=== PATIENT | male | born 1960 | race Two or more races ===

== ENCOUNTER 2025-03-13 08:12 | Inpatient (IN) | payer SELFPAY ==
[~2025-03-13] VITALS: Ht 167.6 cm; Wt 59.6 kg
--- NOTE | 2025-03-13 08:43 | ED.PDOC ---
GI ASSESSMENT HPI Comments 64 y.o male presents to the ED for a chief complaint of lower abdominal pain that started 2 months ago. Patient reports pain is constant however ranges in intensity, going up to a 10/10 on the pain scale. At this time, pain rate is a 4/10 and has no associated symptoms such as nausea, vomiting, diarrhea, fever, chills. Additionally, he mentions intermittent episodes of dysuria and leg weakness. He reports tobacco and alcohol use. Denies medical history or known allergies. Chief Complaint: Pelvic Pain Time Seen by MD: 08:35 Reviewed Notes: Nurses Notes, Medications, Allergies Allergies: Coded Allergies: NO KNOWN ALLERGIES (Unverified , 03/13/25) Information Source: Patient Mode of Arrival: Ambulatory Timing: Months (2) Duration: Since onset Quality: Aching Vomitus: None Stool: Normal Severity: Moderate Recent: None Recent Hx of: None Pain Location: Suprapubic Modifying Factors: Nothing Associated sign and symptoms: Abdominal Pain Past Medical History PAST MEDICAL HISTORY: Denies Surgical History (Other): right leg Family History Family History: Reviewed,noncontributory to illness Social History Smoker: Cigarettes Alcohol: Occasionally Drugs: Denies Drug Use Constitutional: denies: chills, diaphoresis, fatigue, fever, malaise, sweats, weakness, others EENTM: denies: blurred vision, double vision, ear bleeding, ear discharge, ear drainage, ear pain, ear ringing, eye pain, eye redness, hearing loss, mouth pain, mouth swelling, nasal discharge, nose bleeding, nose congestion, nose pain, photophobia, tearing, throat pain, throat swelling, voice changes, others Respiratory: denies: cough, hemoptysis, orthopnea, SOB at rest, shortness of breath, SOB with excertion, stridor, wheezing, others Cardiovascular: denies: chest pain, dizzy spells, diaphoresis, Dyspnea on exertion, edema, irregular heart beat, left arm pain, lightheadedness, palpitations, PND, syncope, others Gastrointestinal: reports: abdominal pain; denies: abdomen distended, blood streaked bowels, constipated, diarrhea, dysphagia, difficulty swallowing, hematemesis, melena, nausea, poor appetite, poor fluid intake, rectal bleeding, rectal pain, vomiting, others Genitourinary: reports: dysuria; denies: burning, flank pain, frequency, hematuria, incontinence, penile discharge, penile sore, pain, testicle pain, testicle swelling, urgency, others Neurological: denies: dizziness, fainting, headache, left sided numbness, left sided weakness, numbness, paresthesia, pre-existing deficit, right sided numbness, right sided weakness, seizure, speech problems, tingling, tremors, weakness, others Musculoskeletal: denies: back pain, gout, joint pain, joint swelling, muscle pain, muscle stiffness, neck pain, others Integumetry: denies: bruises, change in color, change in hair/nails, dryness, laceration, lesions, lumps, rash, wounds, others Allergic/Immunocompromised: denies: Difficulty Healing, Frequent Infections, Hives, Itching, others Hematologic/Lymphatic: denies: anemia, blood clots, easy bleeding, easy bruising, swollen glands, others Endocrine: denies: excessive hunger, excessive sweating, excessive thirst, excessive urination, flushing, intolerance to cold, intolerance to heat, unexplained weight gain, unexplained weight loss, others Psychiatric: denies: anxiety, bipolar disorder, depression, hopeless, panic disorder, schizophrenia, sleepless, suicidal, others All Other Systems: Reviewed and Negative Physical Exam General Appearance: Moderate Distress HEENT: Normal ENT Inspection, Pharynx Normal, TMs Normal Neck: Full Range of Motion, Non-Tender, Normal, Normal Inspection Respiratory: Chest Non-Tender, Lungs Clear, No Accessory Muscle Use, No Respiratory Distress, Normal Breath Sounds Cardiovascular: No Edema, No JVD, No Murmur, No Gallop, Normal Peripheral Pulses, Regular Rate/Rhythm Breast Exam: Deferred Gastrointestinal: No Organomegaly, No Pulsatile Mass, Normal Bowel Sounds, Soft, Suprapubic, Tenderness Genitalia: Deferred Pelvic: Deferred Rectal: Deferred Extremities: No calf tenderness, Normal capillary refill, Normal inspection, Normal range of motion, Non-tender, No pedal edema Musculoskeletal : Apperance: Normal Neurologic: Alert, 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 Was a procedure done?: No GI differential Dx Differential Diagnosis: Esophagitis, Gastroenteritis, Inflammatory BD X-Ray, Labs, Meds, VS Vital Signs Date Time Temp Pulse Resp B/P (MAP) Pulse Ox O2 Delivery O2 Flow Rate FiO2 03/13/25 09:44 97.5 75 17 156/88 (110) 95 97.5 03/13/25 09:44 75 17 96 Room Air 03/13/25 08:14 97.9 93 18 172/108 99 97.9 Lab Test 03/13/25 08:50 Range/Units White Blood Count 7.1 4.4-10.8 10^3/uL Red Blood Count 4.67 4.5-5.90 10^6/uL Hemoglobin 15.5 13.5-17.5 g/dL Hematocrit 45.7 41.0-53.0 % Mean Corpuscular Volume 97.9 80.0-100.0 fL Mean Corpuscular Hemoglobin 33.2 H 28.0-32.0 pg Mean Corpuscular Hemoglobin Concent 33.9 32.0-36.0 g/dL Red Cell Distribution Width 12.6 11.8-14.3 % Platelet Count 292 140-450 10^3/uL Mean Platelet Volume 7.5 6.9-10.8 fL Neutrophils (%) (Auto) 68.2 37.0-80.0 % Lymphocytes (%) (Auto) 19.6 10.0-50.0 % Monocytes (%) (Auto) 10.5 0.0-12.0 % Eosinophils (%) (Auto) 1.1 0.0-7.0 % Basophils (%) (Auto) 0.6 0.0-2.0 % Neutrophils # (Auto) 4.9 1.6-8.6 10 ^3/uL Lymphocytes # (Auto) 1.4 0.4-5.4 10 ^3/uL Monocytes # (Auto) 0.7 0-1.3 10 ^3/uL Eosinophils # (Auto) 0.1 0-0.8 10 ^3/uL Basophils # (Auto) 0 0-0.2 10 ^3/uL Nucleated Red Blood Cells 0.1 % Sodium Level 136 136-145 mmol/L Potassium Level 3.8 3.5-5.1 mmol/L Chloride Level 100 98-107 mmol/L Carbon Dioxide Level 27 20-31 mmol/L Anion Gap 9 5-15 Blood Urea Nitrogen 7 L 9-23 mg/dL Creatinine 0.80 0.700-1.30 mg/dL Glomerular Filtration Rate Calc 99 >90 mL/min BUN/Creatinine Ratio 8.8 L 10.0-20.0 Serum Glucose 87 74-106 mg/dL Calcium Level 9.1 8.7-10.4 mg/dL Lipase Pending CAT scan of the abdomen and pelvis shows: IMPRESSION: Limited noncontrast study. Diffuse wall thickening of the sigmoid colon with apparent 3.3 cm extraluminal fluid collection adjacent to the sigmoid colon which could represent abscess from possible micro-perforation secondary to infection/inflammation. No int raperitoneal free air is visualized. Recommend contrast-enhanced study for further evaluation. Recommend colonoscopy as outpatient to exclude underlying mass. Diffuse bladder wall thickening Inferior Correlate for cystitis. Hep-Lock has been established. The patient is being given normal saline as a bolus. There is a concern that there is a microperforation in the sigmoid colon consistent with maybe diverticulitis with perforation. We are consulting the surgeon right now The patient will be admitted to the hospitalist. We spoke with the surgeon. The patient had an NG-tube placed. The patient will be NPO. The patient will be re-evaluated by the surgeon. The patient was started on Flagyl IV piggyback Images Reviewed?: Images reviewed and evaluated by me Time of 1ST Reevaluation: 08:43 Reevaluation 1ST: Unchanged Patient Education/Counseling: Diagnosis, Treatment, Prognosis Family Education/Counseling: No Family Present SEPSIS Sepsis Screen Date sepsis recognized/suspect: Mar 13, 2025 Time Sepsis recognized/suspect: 0816 Recent Procedure: No On Antibiotic Therapy: No Respiratory Rate >20: No Heart Rate >90: No Temp<36 C (96.8 F) or >38.3 C: No SBP <90 or MAP <65 mmHG: No New Acute Mental Status Change: No Is the patient on CPAP, BIPAP,: No Physician Orders Lipase (03/13/25 08:42) Urinalysis (03/13/25 08:42) Ct Ab Pel Wo Con-No Oral Or Iv (03/13/25 08:42) Heplock Iv (03/13/25 08:42) Basic Metabolic Panel (03/13/25 08:42) Metronidazole 500mg/100ml (Flagyl 500mg/ (03/13/25 09:30) Piperacillin-Tazob 3.375gm (Zosyn 3.375g (03/13/25 09:30) Npo (Nothing By Mouth) Diet (03/13/25 Lunch) Ngt/Ogt (03/13/25 ) Vital Signs Date Time Temp Pulse Resp B/P (MAP) Pulse Ox O2 Delivery O2 Flow Rate FiO2 03/13/25 09:44 97.5 75 17 156/88 (110) 95 97.5 03/13/25 09:44 75 17 96 Room Air 03/13/25 08:14 97.9 93 18 172/108 99 97.9 Laboratory Tests Test 03/13/25 08:50 White Blood Count 7.1 10^3/uL (4.4-10.8) Departure 1 Departure Time of Disposition: 09:58 Impression: Primary Impression: Intractable abdominal pain Additional Impression: Diverticulitis Disposition: ADMITTED INPATIENT Admit to: Med Surg Condition: Fair Critical Care Note Critical Care Time?: No Stability Stability form required: No I personally scribed for MEME MACKAY MD ([email or web address]) on 03/13/25 at 08:43. Electronically submitted by Pearl Bill ([facility]). MEME MACKAY MD Mar 13, 2025 08:43
[2025-03-13 09:19] LABS: Hematocrit 45.7 % (41.0-53.0); Hemoglobin 15.5 g/dL (13.5-17.5); Mean Corpuscular Hemoglobin 33.2 pg (28.0-32.0); Mean Corpuscular Volume 97.9 fL (80.0-100.0); Nucleated Red Blood Cells % 0.1 %
--- NOTE | 2025-03-13 09:23 | DVH ---
EXAM: CT CT AB PEL WO CON-NO ORAL OR IV HISTORY: pain Comparison Study: None Exam Date: 03/13/2025 08:52 AM Radiation Dose Information: CT Dose: CTDI volume is 5.07 mGy. Dose-length product is 244.52 mGy*cm Technique: Multidetector CT of the abdomen and pelvis was performed. Imaging was performed without IV contrast. Axial, coronal and sagittal multiplanar reformats were obtained from the axial data set by the technologist. Findings: Lack of intravenous contrast compromises evaluation of perfusion and for isodense lesions. Lower chest: Clear. Liver: Unremarkable Biliary system: Unremarkable Spleen: Unremarkable Pancreas: Unremarkable. Adrenals: Unremarkable. Kidneys and ureters: No hydronephrosis Bowel: No obstruction. Diffuse wall thickening involving the sigmoid colon. There is apparent extraluminal fluid collection adjacent to the sigmoid colon measuring approximately 3.3 cm. Bladder: Diffuse bladder wall thickening. Reproductive organs: No abnormal mass. Lymph nodes: Unremarkable. Peritoneum: Unremarkable Vessels: Patency not evaluated on this noncontrast study. Bones and soft tissue: No aggressive osseous lesion IMPRESSION: Limited noncontrast study. Diffuse wall thickening of the sigmoid colon with apparent 3.3 cm extraluminal fluid collection adjacent to the sigmoid colon which could represent abscess from possible micro-perforation secondary to infection/inflammation. No intraperitoneal free air is visualized. Recommend contrast-enhanced study for further evaluation. Recommend colonoscopy as outpatient to exclude underlying mass. Diffuse bladder wall thickening Inferior Correlate for cystitis.
[2025-03-13 09:33] LABS: Chloride 100 mmol/L (98-107); Potassium 3.8 mmol/L (3.5-5.1); Sodium 136 mmol/L (136-145)
[2025-03-13 09:34] LABS: Anion Gap 9 (5-15); Calcium 9.1 mg/dL (8.7-10.4); Carbon Dioxide 27 mmol/L (20-31)
[2025-03-13 09:39] LABS: BUN/Creatinine Ratio 8.8 (10.0-20.0); Glucose 87 mg/dL (74-106)
[2025-03-13 09:52] LABS: Blood Urea Nitrogen 7 mg/dL (9-23)
[2025-03-13] MEDS: PIPERACILLIN-TAZOB 3.375GM 100 ML IV ONE (10:55)
[2025-03-13 10:56] VITALS: PULSE 68; RESP 17; O2SAT 99
[2025-03-13 11:02] LABS: Urine Amorphous Crystal FEW /hpf (None Seen); Urine Budding Yeast FEW /hpf (None Seen); Urine Protein, UAD Negative (Negative)
[2025-03-13 11:37] LABS: Lipase 38 U/L (12-53)
[2025-03-13] MEDS: LIDOCAINE 2% TOPICAL JELLY 5 ML URJT TOP ONE (12:45)
[2025-03-13] MEDS: ONDANSETRON HCL 4 MG/2 ML VIAL IV ONE (12:45)
[2025-03-13] MEDS ORDERED: NITROGLYCERIN 0.4 MG SL TAB SL PRN (13:15)
[2025-03-13] MEDS ORDERED: MORPHINE SULFATE INJ 2 MG/ml SYRG IV PRN (13:15)
--- NOTE | 2025-03-13 14:04 | DVHINCON2 ---
Date of service: Mar 13, 2025 Reason for Consultation POSSIBLE SIGMOID MASS History of Present Illness HPI 64 year old male presented to the ER with complaint of lower abdominal pain that started two months ago. He states intermitent abdominal pain going up to a 10/10 on pain scale, Currently he denies any abdominal pain . denies nausea or vomiting. Past Medical History Cardiac: No pertinent Hx Pulmonary: No pertinent Hx Central Nervous System: No pertinent Hx GI: No pertinent Hx Hemotology/Oncology: No pertinent Hx Hepatobiliary: No pertinent Hx Psychiatric: No pertinent Hx Musculoskeletal: No pertinent Hx Rheumotologic: No pertinent Hx Infectious Disease: No peritnent Hx ENT: No pertinent Hx Renal/: No pertinent Hx Endocrine: No pertinent Hx Dermatology: No pertinent Hx Past Surgical History: No pertinent Hx Smoker: Positive Alocohol: Moderate Drugs: Other (uses did not specify which one) Review of Systems Constitutional: No symptom reported Ears, Nose, & Throat: No symptom reported Eyes: No symptom reported Pulmonary/Respiratory: No symptom reported Cardiovascular: No symptom reported Gastrointestinal: No symptom reported Genitourinary: No symptom reported Musculoskeletal: No symptom reported Skin: No symptom reported Psychiatric: No symptom reported Endocrine: No symptom reported Hemotologic/Lymphatic: No symptom reported H&P Exam Vital Signs Vital Signs Date Time Temp Pulse Resp B/P (MAP) Pulse Ox O2 Delivery O2 Flow Rate FiO2 03/13/25 11:02 98 Room Air* 0 21 03/13/25 10:56 68 17 03/13/25 10:00 161/81 (107) 03/13/25 09:44 97.5 97.5 General Appeara: Well developed Head Exam: Normal inspection Neck Exam: Normal inspection Abdominal Exam: Soft, No tenderness Tendon/ Neuro: 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 hearing, Normal speech, PERRL Neuro/Mental St: Alert, Oriented Appearance: Appropriate appearance Eye contact/ Speech: Cooperative, Good eye contact, Normal speech Labs/Xrays Labs Test 03/13/25 08:55 03/13/25 08:50 Range/Units Urine Color Light-orange Yellow Urine Clarity Turbid H Clear Urine pH 7.0 5.0-9.0 Urine Specific [place] 1.016 1.001-1.035 Urine Protein Negative Negative Urine Ketones 1+ H Negative Urine Blood Negative Negative /uL Urine Nitrite Negative Negative Urine Bilirubin Negative Negative Urine Urobilinogen 2 H Negative mg/dL Urine Leukocyte Esterase Negative Negative /uL Urine RBC 2 0 - 3 /hpf Urine Microscopic WBC < 1 0-3 /HPF Urine Squamous Epithelial Cells Few <5 /hpf Urine Amorphous Crystals Few None Seen /hpf Urine Bacteria None seen None Seen /hpf Urine Mucus Few None Seen Urine Yeast (Budding) Few None Seen /hpf Urine Glucose Normal Normal mg/dL White Blood Count 7.1 4.4-10.8 10^3/uL Red Blood Count 4.67 4.5-5.90 10^6/uL Hemoglobin 15.5 13.5-17.5 g/dL Hematocrit 45.7 41.0-53.0 % Mean Corpuscular Volume 97.9 80.0-100.0 fL Mean Corpuscular Hemoglobin 33.2 H 28.0-32.0 pg Mean Corpuscular Hemoglobin Concent 33.9 32.0-36.0 g/dL Red Cell Distribution Width 12.6 11.8-14.3 % Platelet Count 292 140-450 10^3/uL Mean Platelet Volume 7.5 6.9-10.8 fL Neutrophils (%) (Auto) 68.2 37.0-80.0 % Lymphocytes (%) (Auto) 19.6 10.0-50.0 % Monocytes (%) (Auto) 10.5 0.0-12.0 % Eosinophils (%) (Auto) 1.1 0.0-7.0 % Basophils (%) (Auto) 0.6 0.0-2.0 % Neutrophils # (Auto) 4.9 1.6-8.6 10 ^3/uL Lymphocytes # (Auto) 1.4 0.4-5.4 10 ^3/uL Monocytes # (Auto) 0.7 0-1.3 10 ^3/uL Eosinophils # (Auto) 0.1 0-0.8 10 ^3/uL Basophils # (Auto) 0 0-0.2 10 ^3/uL Nucleated Red Blood Cells 0.1 % Sodium Level 136 136-145 mmol/L Potassium Level 3.8 3.5-5.1 mmol/L Chloride Level 100 98-107 mmol/L Carbon Dioxide Level 27 20-31 mmol/L Anion Gap 9 5-15 Blood Urea Nitrogen 7 L 9-23 mg/dL Creatinine 0.80 0.700-1.30 mg/dL Glomerular Filtration Rate Calc 99 >90 mL/min BUN/Creatinine Ratio 8.8 L 10.0-20.0 Serum Glucose 87 74-106 mg/dL Calcium Level 9.1 8.7-10.4 mg/dL Lipase 38 12-53 U/L Assessment/Plan Problem List: (1) Intractable abdominal pain Plan LABS REVIEWED WBC NORMAL NOTES REVIEWED PATIENT DENIES ABDOMINAL PAIN NON TENDER ABDOMEN TO PALPATION DENIES NAUSEA OR VOMITING NGT TO [facility] NPO NO SURGERY AT THIS TIME WILL REEVALUATE TO [facility] MARTINEZ Plan discussed with: Patient, Other (DR. HUSSEIN ) Visit Coding Surgery Date of Service if different f: Mar 13, 2025 Billing Provider: JENNIFER HUSSEIN MD Surgery Visit Codes: 37773 - INP CONSULT <80 MIN JOSE HERRERA FOREIGN AGENT Mar 13, 2025 14:04
[2025-03-13] MEDS: PIPERACILLIN-TAZOB 3.375GM 100 ML IV SCH (14:15)
--- NOTE | 2025-03-13 14:47 | DVH ---
CHEST RADIOGRAPH Indication: NGT placement Technique: Single frontal view of the chest was obtained Comparison: None FINDINGS: Lines and Tubes: Nasogastric tube tip in the stomach Lungs: No focal consolidation. Pleura: No effusion. No pneumothorax. Cardiomediastinal contours: Unremarkable Bones: No acute osseous abnormality. IMPRESSION: No acute cardiopulmonary disease. Nasogastric tube tip in the stomach.
[2025-03-13] MEDS: OMNIPAQUE 12mg/ml 500ml ORAL SOLUTION PO ONE (15:01)
[2025-03-13] MEDS: IOHEXOL 300 MG/ML 100ML BOTTLE IJ ONE (17:26)
--- NOTE | 2025-03-13 18:11 | DVHHPRES ---
History of Present Illness Resident Creating Document: CASANDRA HSIEH RESIDENT History of Present Illness JOSÉ HAMPTON, a 64-year-old male presents to the ED with a 2-month history of constant suprapubic abdominal pain, described as aching and varying in intensity, reaching up to 10/10 at its worst and currently rated 4/10 with recent history of watery nonbloody diarrhea. Patient presented with acute onset of 10/10 generalized abdominal pain, nausea, and recent constipation associated with chills and fever but patient did not check temperature. Pain has no clear modifying factors and is not associated with nausea, vomiting, diarrhea, fever, or chills. Patient reports intermittent episodes of dysuria and occasional leg weakness. Denies past medical history or known allergies; surgical history notable for prior right leg procedure. Social history includes active 40+ pack year cigarette smoking and occasional alcohol use; denies illicit drug use. Family history reviewed and noncontributory. The patient does not have a PCP, did not follow up with physicians and never had a colonoscopy. Denies any family history of gastrointestinal cancer or autoimmune disease. PMHx: Denies PSHx:right leg ORIF 20 years back , bilateral cataract surgery Family history: Reviewed, noncontributory to illness Social history: 40+ pack-year of smoking history, currently smokes 1 pack of cigarettes each day. denies lifetime use of recreational drugs, daily 2-3 beers, last alcohol consumption about 48 hours ago. Review of Systems Constitutional: Yes: Fever, Chills, Malaise; No: Sweats, Weakness, Other Eyes: No: Pain, Vision change, Conjunctivae inflammation, Eyelid inflammation, Other, Redness ENT: No: Ear pain, Ear discharge, Nose pain, Nose discharge, Nose congestion, Mouth pain, Mouth swelling, Throat pain, Throat swelling, Other Cardiovascular: No: Chest Pain, Palpitations, Orthopnea, Paroxysmal Noc. Dyspnea, Edema, Lt Headedness, Other Gastrointestinal: Nausea, Vomiting, Abdominal Pain, Diarrhea; No: Constipation, Melena, Hematochezia, Other Genitourinary: No Dysuria, No Frequency, No Incontinence, No Hematuria, No Retention, No Other Musculoskeletal: No: other, neck pain, shoulder pain, arm pain, back pain, hand pain, leg pain, foot pain Skin: No: Rash, Lesions, Jaundice, Bruising, Other Neurological: No: Weakness, Numbness, Incoordination, Change in speech, Confusion, Seizures, Other Allergies: Coded Allergies: NO KNOWN ALLERGIES (Unverified , 03/13/25) Medications Current Medications Medications Dose Ordered Sig/Arabella Route Start Time Stop Time Status Last Admin Dose Admin Nitroglycerin 0.4 mg Q5MINP PRN SL 03/13/25 13:15 Morphine Sulfate 2 mg Q30M PRN IV 03/13/25 13:15 Piperacillin Sod/ Tazobactam Sod 100 ml @ 25 mls/hr Q8HR IV 03/13/25 14:00 03/13/25 14:15 25 MLS/HR Nicotine 1 patch DAILY TD 03/14/25 10:00 UNV Lactated Ringer's 1,000 ml @ 100 mls/hr Q10H IV 03/13/25 18:15 UNV Exam Vital Signs Vital Signs Date Time Temp Pulse Resp B/P (MAP) Pulse Ox O2 Delivery O2 Flow Rate FiO2 03/13/25 16:00 73 19 153/81 (105) 97 03/13/25 12:00 97.9 97.9 03/13/25 11:02 Room Air* 0 21 General Appearance: Alert, Oriented X3, Cooperative, mild distress HEENT: Atraumatic, PERRLA, EOMI, Other (dry on NG tube) Respiratory: Clear to auscultation, Normal air movement, Other (room air) Cardiovascular: Regular rate, Normal S1, Normal S2, No murmurs Abdominal: Other (tenderness in the left lower quadrant and right lower quadrant. no guarding, no cva angle tenderness. no surgical scar. ) Extremities: No clubbing, No cyanosis, No edema, Normal pulses, No te nderness/swelling, Other (right lower leg old healed surgical scar. ) Skin: No rashes, No breakdown, No significant lesion Neuro: Normal gait, Normal speech, Strength at 5/5 X4 ext, Normal tone, Sensation intact, Cranial nerves 3-12 NL, Reflexes 2+ Psych/Mental Status: Mental status NL, Mood NL Labs/Xrays Labs Test 03/13/25 15:37 03/13/25 08:55 03/13/25 08:50 Range/Units Urine Color Light-orange Yellow Urine Clarity Turbid H Clear Urine pH 7.0 5.0-9.0 Urine Specific [place] 1.016 1.001-1.035 Urine Protein Negative Negative Urine Ketones 1+ H Negative Urine Blood Negative Negative /uL Urine Nitrite Negative Negative Urine Bilirubin Negative Negative Urine Urobilinogen 2 H Negative mg/dL Urine Leukocyte Esterase Negative Negative /uL Urine RBC 2 0 - 3 /hpf Urine Microscopic WBC < 1 0-3 /HPF Urine Squamous Epithelial Cells Few <5 /hpf Urine Amorphous Crystals Few None Seen /hpf Urine Bacteria None seen None Seen /hpf Urine Mucus Few None Seen Urine Yeast (Budding) Few None Seen /hpf Urine Glucose Normal Normal mg/dL White Blood Count 7.1 4.4-10.8 10^3/uL Red Blood Count 4.67 4.5-5.90 10^6/uL Hemoglobin 15.5 13.5-17.5 g/dL Hematocrit 45.7 41.0-53.0 % Mean Corpuscular Volume 97.9 80.0-100.0 fL Mean Corpuscular Hemoglobin 33.2 H 28.0-32.0 pg Mean Corpuscular Hemoglobin Concent 33.9 32.0-36.0 g/dL Red Cell Distribution Width 12.6 11.8-14.3 % Platelet Count 292 140-450 10^3/uL Mean Platelet Volume 7.5 6.9-10.8 fL Neutrophils (%) (Auto) 68.2 37.0-80.0 % Lymphocytes (%) (Auto) 19.6 10.0-50.0 % Monocytes (%) (Auto) 10.5 0.0-12.0 % Eosinophils (%) (Auto) 1.1 0.0-7.0 % Basophils (%) (Auto) 0.6 0.0-2.0 % Neutrophils # (Auto) 4.9 1.6-8.6 10 ^3/uL Lymphocytes # (Auto) 1.4 0.4-5.4 10 ^3/uL Monocytes # (Auto) 0.7 0-1.3 10 ^3/uL Eosinophils # (Auto) 0.1 0-0.8 10 ^3/uL Basophils # (Auto) 0 0-0.2 10 ^3/uL Nucleated Red Blood Cells 0.1 % Sodium Level 136 136-145 mmol/L Potassium Level 3.8 3.5-5.1 mmol/L Chloride Level 100 98-107 mmol/L Carbon Dioxide Level 27 20-31 mmol/L Anion Gap 9 5-15 Blood Urea Nitrogen 7 L 9-23 mg/dL Creatinine 0.80 0.700-1.30 mg/dL Glomerular Filtration Rate Calc 99 >90 mL/min BUN/Creatinine Ratio 8.8 L 10.0-20.0 Serum Glucose 87 74-106 mg/dL Calcium Level 9.1 8.7-10.4 mg/dL Lipase 38 12-53 U/L Carcinoembryonic Antigen 3.93 <=5.0 ng/mL SEPSIS Sepsis Screen Date sepsis recognized/suspect: Mar 13, 2025 Time Sepsis recognized/suspect: 1100 Recent Procedure: No On Antibiotic Therapy: No Respiratory Rate >20: Yes Heart Rate >90: Yes Temp<36 C (96.8 F) or >38.3 C: No SBP <90 or MAP <65 mmHG: No New Acute Mental Status Change: No Is the patient on CPAP, BIPAP,: No Physician Orders Admit (03/13/25 13:13) Nitroglycerin Sublingual (Ntrostat Subli (03/13/25 13:15) Morphine Sulfate Injection (03/13/25 13:15) Oxygen By Nasal Cannula (03/13/25 13:13) Stat Ekg For Chest Pain (03/13/25 13:13) Notify Md Of Changes From Base (03/13/25 13:13) Operative Supervisor For 24 Hours (03/13/25 13:13) Emergency Dysrhythmia Protocol (03/13/25 13:13) Rhythm Strips Once Every Shift (03/13/25 13:13) * Surgical Consult (03/13/25 ) Chest Xray 1 View (03/13/25 13:32) Piperacillin-Tazob 3.375gm (Zosyn 3.375g (03/13/25 14:00) Blood Culture (03/13/25 13:38) Npo (Nothing By Mouth) Diet (03/13/25 Dinner) Ng To Lcs (03/13/25 13:53) Suction To 20 Cm (03/13/25 13:52) Communication Order (03/13/25 13:52) Ct Abd Pelvis W Con-Oral & Iv (03/13/25 14:04) Hepatic Panel (03/13/25 17:59) Lactic Acid W/ Reflex Order (03/13/25 17:59) Prothrombin Time W/ Inr (03/13/25 17:59) Consult [place] Counselor (03/13/25 ) Complete Blood Count (03/14/25 04:00) Comprehensive Metabolic Panel (03/14/25 04:00) Drug Screen (03/13/25 18:02) Clostridium Difficile Toxin (03/13/25 18:02) Ova & Parasite Exam (03/13/25 18:02) Stool Bacterial Culture (03/13/25 18:02) Stool Occult Blood (03/13/25 18:02) Gram Stain (03/13/25 18:02) Stool Wbc (03/13/25 18:02) Nicotine 14mg/24hr (Nicoderm 14mg/24hr) (03/13/25 18:15) Nicotine 14mg/24hr (Nicoderm 14mg/24hr) (03/14/25 10:00) Lactated Ringer's (03/13/25 18:15) Vital Signs Date Time Temp Pulse Resp B/P (MAP) Pulse Ox O2 Delivery O2 Flow Rate FiO2 03/13/25 16:00 73 19 153/81 (105) 97 03/13/25 14:00 73 17 165/84 (111) 95 03/13/25 12:00 97.9 77 17 160/91 (114) 95 97.9 03/13/25 11:02 98 Room Air* 0 21 03/13/25 10:56 68 17 99 Room Air* 0 21 Laboratory Tests Test 03/13/25 08:50 03/13/25 15:37 White Blood Count 7.1 10^3/uL (4.4-10.8) Lactic Acid Level Pending Medications Medications Dose Ordered Sig/Arabella Route Start Time Stop Time Status Last Admin Dose Admin Iohexol 1,000 ml STK-MED ONCE PO 03/13/25 14:39 03/13/25 14:38 DC 03/13/25 15:01 1,000 ML Lidocaine HCl 5 ml ONCE ONCE TOP 03/13/25 11:30 03/13/25 11:31 DC 03/13/25 12:45 5 ML Metronidazole 100 ml @ 100 mls/hr ONCE ONCE IV 03/13/25 09:30 03/13/25 10:29 DC 03/13/25 10:55 100 MLS/HR Ondansetron HCl 4 mg ONCE ONCE IV 03/13/25 11:30 03/13/25 11:31 DC 03/13/25 12:45 4 MG Piperacillin Sod/ Tazobactam Sod 100 ml @ 25 mls/hr Q8HR IV 03/13/25 14:00 03/13/25 14:15 25 MLS/HR Piperacillin Sod/ Tazobactam Sod 100 ml @ 100 mls/hr ONCE ONCE IV 03/13/25 09:30 03/13/25 10:29 DC 03/13/25 10:55 100 MLS/HR Assessment/Plan Assessment/Plan #Undiscovered uncontrolled essential hypertension: Pain control, target blood pressure 140/ 90 or below if remains elevated, consider starting the patient on amlodipine p.o. when able to tolerate Diet orally. For now as needed IV hydralazine #acute abdominal pain likely due to diverticulitis: No previous colonoscopy, needs interval colonoscopy, outpatient follow up with GI for colonoscopy given high-risk of colon cancer. CEA, [place] 19 9 to follow. Lipase to check. Pain control IV hydration to continue NPO for now. #sigmoid colon abscess, 3.3 cm: IV Zosyn to continue, IV fluid, NG tube, surgical consult. #Colonic diverticulosis: Avoid constipation. #Prostatomegaly: Prostate large 2.9, 4.7, 3.3 with calcifications: Check for PSA, starting tamsulosin hospital look for urinary retention. #Past surgical history of right leg ORIF and bilateral cataract surgery #Active nicotine abuse, cigarette smoking 40+ pack-year history: Elevated minute bedside smoking cessation counseling done, the patient is on nicotine patch in-hospital. #moderate alcohol abuse: Patient reports consuming 2-3 beer per day, no active signs of withdrawal, but patient becomes agitated consider putting the patient on CIWA protocol. PUD prophylaxis: protonix 40mg Daily to continue DVT prophylaxis: SCD/brisk movement. Barriers to discharge: Medical diagnosis and management in progress. Patient lives with self in [place]. Independent for ADL. PT and SW consult as needed. PCP: never followed a PCP Specialist Relevant To Admission: general surgery, Dr. Pierce consulted for possible sigmoid abscess drainage/ further surgical management. As needed GI consult. morning caregiver consult for help with the insurance coverage. Needs discharge Clinic follow up, insurance coverage and close follow up with PCP and GI. Case discussed with Dr. Weber. Code Status: Full Code. Discussion needed total 29 minutes bedside. Patient is admitted in med surg. Plan discussed with: Patient My Orders Orders - CASANDRA HSIEH RESIDENT Procedure Category Date Status Time Admit ADMIT 03/13/25 Transmitted 13:13 Nitroglycerin PHA 03/13/25 In Process Sublingual (Ntrostat 13:15 Morphine Sulfate PHA 03/13/25 In Process Injection 13:15 Oxygen By Nasal RT 03/13/25 Transmitted Cannula 13:13 Stat Ekg For Chest KENNA 03/13/25 In Process Pain 13:13 Notify Md Of Changes KENNA 03/13/25 In Process From Base 13:13 Operative Supervisor For KENNA 03/13/25 In Process 24 Hours 13:13 Emergency Dysrhythmia KENNA 03/13/25 In Process Protocol 13:13 Rhythm Strips Once KENNA 03/13/25 In Process Every Shift 13:13 * Surgical Consult CONS 03/13/25 Transmitted Piperacillin-Tazob PHA 03/13/25 In Process 3.375gm (Zosyn 3.375g 14:00 Blood Culture ANUM 03/13/25 In Process 13:38 Npo (Nothing By DIET 03/13/25 Transmitted Mouth) Diet Dinner Hepatic Panel LAB 03/13/25 In Process 17:59 Lactic Acid W/ Reflex LAB 03/13/25 In Process Order 17:59 Prothrombin Time W/ LAB 03/13/25 Logged INR 17:59 Consult Care CONS 03/13/25 Transmitted Coordinator Complete Blood Count LAB 03/14/25 Verified 04:00 Comprehensive LAB 03/14/25 Verified Metabolic Panel 04:00 Drug Screen LAB 03/13/25 Logged 18:02 Clostridium Difficile ANUM 03/13/25 Logged Toxin 18:02 Ova & Parasite Exam ANUM 03/13/25 Logged 18:02 Stool Bacterial ANUM 03/13/25 Logged Culture 18:02 Stool Occult Blood LAB 03/13/25 Logged 18:02 Gram Stain ANUM 03/13/25 Logged 18:02 Stool Wbc LAB 03/13/25 Logged 18:02 Nicotine 14mg/24hr PHA 03/13/25 Logged (Nicoderm 14mg/24hr) 18:15 Nicotine 14mg/24hr PHA 03/14/25 Logged (Nicoderm 14mg/24hr) 10:00 Lactated Ringer's PHA 03/13/25 Logged 18:15 Date of Service: Mar 13, 2025 Billing Provider: JEFRY WEBER MD Common Visit Codes: [id number] INP/OBS CARE (HIGH) Secondary Visit Codes: [id number] CARE PLAN 30 MINUTES CASANDRA HSIEH RESIDENT Mar 13, 2025 18:11
--- NOTE | 2025-03-13 18:11 | DVH ---
Exam: CT CT ABD PELVIS W CON-ORAL IV History: R/O PERF,SIGMOID DIVERTICULITIS. Comparison Study: None TECHNIQUE: Multidetector CT of the abdomen pelvis with IV and oral contrast. Axial, coronal and sagittal multiplanar reformats were obtained from the axial data set by the technologist. Radiation Dose Information: CT Dose: CTDI volume is 5.07 mGy. Dose-length product is 244.52 mGy*cm FINDINGS: Bibasilar atelectasis/scarring. Partially visualized heart is unremarkable. Mild hepatic steatosis. Otherwise, liver, spleen, gallbladder, pancreas and adrenal glands unremarkable. Kidneys and ureters are unremarkable. Mild distention of the Urinary bladder borderline urinary bladder wall thickening. Prostate measures 2.9 x 4.7 x 3.3 cm with calcifications. Enteric tube is noted terminating within the stomach. Stomach is unremarkable. Small bowel loops unremarkable. Contrast is noted within the stomach and small bowel loops with minimal contrast within the cecum. Appendix is unremarkable. Colonic diverticulosis. Pinning of the cecum and ascending colon which may be from inadequate distention. Wall thickening of the sigmoid with redemonstration of 2.8 x 3.6 cm fluid collection with air and enhancing wall adjacent to The sigmoid. No evidence of intraperitoneal free air. Minimal mesenteric edema. No evidence of aortic aneurysm or dissection. Moderate to heavy atherosclerotic calcification of the aorta and bilateral iliacs. No significant lymphadenopathy. The soft tissues are unremarkable. No evidence of acute osseous abnormalities. IMPRESSION: Colonic diverticulosis with sigmoiditis and parasigmoid 2.8 x 3.6 cm suggested abscess. No associated free air. Minimal wall thickening of the mildly distended Urinary bladder. Correlation with urinalysis is recommended to exclude cystitis. Oral contrast is noted within the stomach, small bowel loops and cecum.
[2025-03-13] MEDS: NICOTINE 14 MG/24HR TOPICAL PATCH TD ONE (18:15)
[2025-03-13 18:25] LABS: Alanine Aminotransferase 20.0 U/L (7-40); Albumin 3.9 g/dL (3.2-4.8); Alkaline Phosphatase 88.0 U/L (46-116); Bilirubin, Direct 0.2 mg/dL (<0.3); Bilirubin, Total 0.4 mg/dL (0.2-1.0); Total Protein 7.0 g/dL (5.7-8.2)
[2025-03-13 18:37] VITALS: BP 153/81; PULSE 73; RESP 19; TEMP 97.9; O2SAT 97
[2025-03-13 19:11] LABS: INR 1.04 (0.9-1.15); Prothrombin Time 11.0 sec (9.3-11.8)
[2025-03-13] MEDS ORDERED: hydrALAZINE HCL 20 MG/ML VL IV PRN (19:45)
[2025-03-13 20:00] VITALS: PULSE 63; PULSE 72; RESP 20; O2SAT 96
[2025-03-13 21:00] VITALS: BP 138/82; PULSE 70; RESP 20; TEMP 98.2; O2SAT 96
[2025-03-14] VITALS (8 sets, daily range): BP systolic 109–148; BP diastolic 66–88; PULSE 59–82; RESP 18–20; TEMP 98.1–98.8; O2SAT 95–98
[2025-03-14] MEDS: LACTATED RINGER'S 1,000 ML IV SCH (01:57)
[2025-03-14 06:17] LABS: Hematocrit 40.8 % (41.0-53.0); Hemoglobin 14.0 g/dL (13.5-17.5); Mean Corpuscular Hemoglobin 33.4 pg (28.0-32.0); Mean Corpuscular Volume 97.2 fL (80.0-100.0); Nucleated Red Blood Cells % 0.1 %
[2025-03-14 06:32] LABS: Alanine Aminotransferase 13 U/L (7-40); Albumin 3.7 g/dL (3.2-4.8); Alkaline Phosphatase 75 U/L (46-116); Anion Gap 12 (5-15); BUN/Creatinine Ratio 9.6 (10.0-20.0); Carbon Dioxide 24 mmol/L (20-31); Chloride 100 mmol/L (98-107); Potassium 4.0 mmol/L (3.5-5.1); Total Protein 6.8 g/dL (5.7-8.2)
[2025-03-14 06:33] LABS: Bilirubin, Total 0.5 mg/dL (0.2-1.0)
[2025-03-14 06:37] LABS: Blood Urea Nitrogen 7 mg/dL (9-23); Calcium 8.6 mg/dL (8.7-10.4); Glucose 64 mg/dL (74-106); Sodium 136 mmol/L (136-145)
[2025-03-14] MEDS: NICOTINE 14 MG/24HR TOPICAL PATCH TD SCH (09:36)
--- NOTE | 2025-03-14 11:27 | DVHPN2 ---
Progress Note Date Seen: Mar 14, 2025 Medical Necessity Reason Pt with a Central, PICC or Fol: No Objective vital signs Vital Sign Date Time Temp Pulse Resp B/P (MAP) Pulse Ox O2 Delivery O2 Flow Rate FiO2 03/14/25 09:00 98.6 66 20 109/70 (83) 96 98.6 03/14/25 08:00 Room Air* 0 21 Total Intake and Output 03/13/25 03/13/25 03/14/25 15:00 23:00 07:00 Intake Total 200 ml 100 ml 0 ml Output Total 300 ml 400 ml Balance 200 ml -200 ml -400 ml medications Current Medications Medications Dose Ordered Sig/Arabella Route Start Time Stop Time Status Last Admin Dose Admin Nitroglycerin 0.4 mg Q5MINP PRN SL 03/13/25 13:15 Piperacillin Sod/ Tazobactam Sod 100 ml @ 25 mls/hr Q8HR IV 03/13/25 14:00 03/14/25 06:19 25 MLS/HR Nicotine 1 patch DAILY TD 03/14/25 10:00 03/14/25 09:36 1 PATCH Lactated Ringer's 1,000 ml @ 100 mls/hr Q10H IV 03/13/25 18:15 03/14/25 01:57 100 MLS/HR Hydralazine HCl 10 mg Q6HP PRN IV 03/13/25 19:45 Tamsulosin HCl 0.4 mg QPM PO 03/14/25 18:00 laboratory and microbiology Laboratory Tests 03/14/25 04:35 Test 03/14/25 04:35 Range/Units Serum Glucose 64 L 74-106 mg/dL Problem List/Assessment/Plan Problem List/Assessment/Plan 03/14/25 feels well, no pain, abdomen nontender, wbc norm al, patient remains afebrile, will dc ngt and start po clear liquids Plan discussed with: Patient JENNIFER HUSSEIN MD Mar 14, 2025 11:26
--- NOTE | 2025-03-14 14:45 | DVHPN2 ---
Subjective The patient is seen and examined at bedside. Complain of abdominal pain. Wanted to know if he can eat. Reviewed: Care Plan, H&P, Labs, Medications, Previous Orders, Radiology Changes from previous H/P or p: No Changes Eyes: No Pain, No Vision change, No Conjunctivae inflammation, No Eyelid inflammation, No Other, No Redness ENT: No Ear pain, No Ear discharge, No Nose pain, No Nose discharge, No Nose congestion, No Mouth pain, No Mouth swelling, No Throat pain, No Throat swelling, No Other Cardiovascular: No Chest Pain, No Palpitations, No Orthopnea, No Paroxysmal Noc. Dyspnea, No Edema, No Lt Headedness, No Other Gastrointestinal: Nausea, Vomiting, Abdominal Pain, Diarrhea; No Constipation, No Melena, No Hematochezia, No Other Genitourinary: No Dysuria, No Frequency, No Incontinence, No Hematuria, No Retention, No Other Musculoskeletal: No other, No neck pain, No shoulder pain, No arm pain, No back pain, No hand pain, No leg pain, No foot pain Skin: No Rash, No Lesions, No Jaundice, No Bruising, No Other Objective Vitals Vital Signs Date Time Temp Pulse Resp B/P (MAP) Pulse Ox O2 Delivery O2 Flow Rate FiO2 03/14/25 12:33 98.8 72 20 148/88 (108) 96 98.8 03/14/25 08:00 Room Air* 0 21 Intake/Output Intake and Output 03/14/25 07:00 Intake Total 300 ml Output Total 700 ml Balance -400 ml Intake Oral 0 ml IV Total 300 ml Output Urine Total 400 ml Emesis 300 ml General Appearance: Alert, Oriented X3, Cooperative, No acute distress HEENT: Atraumatic, PERRLA, EOMI, Mucous membr. moist/pink Neck: Supple Lungs: Clear to auscultation, Normal air movement Cardiovascular: Regular rate, Normal S1, Normal S2, No murmurs, Gallops, Rubs Abdomen: Normal bowel sounds, Soft, No tenderness Neuro: Cranial nerves 3-12 NL Psych/Mental Status: Mental status NL Medications Current Medications Medications Dose Ordered Sig/Arabella Route Start Time Stop Time Status Last Admin Dose Admin Nitroglycerin 0.4 mg Q5MINP PRN SL 03/13/25 13:15 Piperacillin Sod/ Tazobactam Sod 100 ml @ 25 mls/hr Q8HR IV 03/13/25 14:00 03/14/25 14:10 25 MLS/HR Nicotine 1 patch DAILY TD 03/14/25 10:00 03/14/25 09:36 1 PATCH Lactated Ringer's 1,000 ml @ 100 mls/hr Q10H IV 03/13/25 18:15 03/14/25 01:57 100 MLS/HR Hydralazine HCl 10 mg Q6HP PRN IV 03/13/25 19:45 Tamsulosin HCl 0.4 mg QPM PO 03/14/25 18:00 Laboratory Results Laboratory Tests 03/14/25 04:35 Chemistry Test 03/13/25 15:37 03/14/25 04:35 Albumin 3.9 g/dL (3.2-4.8) 3.7 g/dL (3.2-4.8) Total Protein 7.0 g/dL (5.7-8.2) 6.8 g/dL (5.7-8.2) Calcium Level 8.6 mg/dL (8.7-10.4) L Coagulation Test 03/13/25 18:22 Prothrombin Time 11.0 sec (9.3-11.8) Prothrombin Time INR 1.04 (0.9-1.15) LFT Test 03/13/25 15:37 03/14/25 04:35 Alanine Aminotransferase (ALT) 20 U/L (7-40) 13 U/L (7-40) Alkaline Phosphatase 88 U/L (46-116) 75 U/L (46-116) Aspartate Amino Transferase (AST) 23 U/L (13-40) 20 U/L (13-40) Direct Bilirubin 0.2 mg/dL (<0.3) Total Bilirubin 0.4 mg/dL (0.2-1.0) 0.5 mg/dL (0.2-1.0) Urinalysis Test 03/13/25 08:55 Urine Color Light-orange (Yellow) Urine Clarity Turbid (Clear) H Urine pH 7.0 (5.0-9.0) Urine Specific [place] 1.016 (1.001-1.035) Urine Protein Negative (Negative) Urine Ketones 1+ (Negative) H Urine Blood Negative /uL (Negative) Urine Nitrite Negative (Negative) Urine Bilirubin Negative (Negative) Urine Urobilinogen 2 mg/dL (Negative) H Urine Leukocyte Esterase Negative /uL (Negative) Urine RBC 2 /hpf (0 - 3) Urine Microscopic WBC < 1 /HPF (0-3) Urine Squamous Epithelial Cells Few /hpf (<5) Urine Amorphous Crystals Few /hpf (None Seen) Urine Bacteria None seen /hpf (None Seen) Urine Mucus Few (None Seen) Urine Yeast (Budding) Few /hpf (None Seen) Urine Glucose Normal mg/dL (Normal) Labs and/or images reviewed: Labs reviewed by me Assessment/Plan Assessment/Plan #Undiscovered uncontrolled essential hypertension: Pain control, target blood pressure 140/ 90 or below if remains elevated, consider starting the patient on amlodipine p.o. when able to tolerate Diet orally. For now as needed IV hydralazine #acute abdominal pain likely due to diverticulitis: No previous colonoscopy, needs interval colonoscopy, outpatient follow up with GI for colonoscopy given high-risk of colon cancer. CEA, [place] 19 9 to follow. Lipase to check. Pain control IV hydration to continue NPO for now. #sigmoid colon abscess, 3.3 cm: IV Zosyn to continue, IV fluid, NG tube, surgical consult. #Colonic diverticulosis: Avoid constipation. #Prostatomegaly: Prostate large 2.9, 4.7, 3.3 with calcifications: Check for PSA, starting tamsulosin hospital look for urinary retention. #Past surgical history of right leg ORIF and bilateral cataract surgery #Active nicotine abuse, cigarette smoking 40+ pack-year history: Elevated minute bedside smoking cessation counseling done, the patient is on nicotine patch in-hospital. #moderate alcohol abuse: Patient reports consuming 2-3 beer per day, no active signs of withdrawal, but patient becomes agitated consider putting the patient on CIWA protocol. PUD prophylaxis: protonix 40mg Daily to continue DVT prophylaxis: SCD/brisk movement. Diet advanced per surgeon to clear liquid diet. No surgery planned for now per surgeon. Advised the patient he needs a colonoscopy within 3-6 months after the abscess treat. This medical document was created using an electronic medical record system with [employer] direct computerized dictation system. Although this document has been carefully reviewed, there may still be some phonetic and typographical errors. These areas are purely typographical due to imperfections of the software programs, and do not reflect any compromise in the patient's medical care. Plan discussed with: Patient Date of Service: Mar 14, 2025 Billing Provider: KOTA ENRIQUEZ MD Common Visit Codes: [id number] INP/OBS CARE(HIGH) KOTA ENRIQUEZ MD Mar 14, 2025 14:45
[2025-03-14] MEDS: TAMSULOSIN HYDROCHLORIDE 0.4 MG CAP PO SCH (17:15)
[2025-03-15] VITALS (8 sets, daily range): BP systolic 115–150; BP diastolic 66–85; PULSE 61–84; RESP 16–20; TEMP 98.1–98.5; O2SAT 93–98
--- NOTE | 2025-03-15 09:49 | DVHPN2 ---
Progress Note Date Seen: Mar 15, 2025 Medical Necessity Reason Pt with a Central, PICC or Fol: No Objective vital signs Vital Sign Date Time Temp Pulse Resp B/P (MAP) Pulse Ox O2 Delivery O2 Flow Rate FiO2 03/15/25 08:50 98.3 64 20 136/80 (98) 93 98.3 03/14/25 20:00 Room Air* 0 21 Total Intake and Output 03/14/25 03/14/25 03/15/25 15:00 23:00 07:00 Intake Total 310 ml 440 ml Output Total 500 ml 2100 ml Balance -190 ml -1660 ml medications Current Medications Medications Dose Ordered Sig/Arabella Route Start Time Stop Time Status Last Admin Dose Admin Nitroglycerin 0.4 mg Q5MINP PRN SL 03/13/25 13:15 Piperacillin Sod/ Tazobactam Sod 100 ml @ 25 mls/hr Q8HR IV 03/13/25 14:00 03/15/25 05:45 25 MLS/HR Nicotine 1 patch DAILY TD 03/14/25 10:00 03/14/25 09:36 1 PATCH Lactated Ringer's 1,000 ml @ 100 mls/hr Q10H IV 03/13/25 18:15 03/15/25 05:47 100 MLS/HR Hydralazine HCl 10 mg Q6HP PRN IV 03/13/25 19:45 Tamsulosin HCl 0.4 mg QPM PO 03/14/25 18:00 03/14/25 17:15 0.4 MG laboratory and microbiology Laboratory Tests 03/14/25 04:35 Test 03/14/25 04:35 Range/Units Serum Glucose 64 L 74-106 mg/dL Problem List/Assessment/Plan Problem List/Assessment/Plan 03/14/25 feels well, no pain, abdomen nontender, wbc norm al, patient remains afebrile, will dc ngt and start po clear liquids 03/15/25 AFEBRILE, NORMOTENSIVE, TOLERATED CLEAR LIQUIDS WITHOUT NAUSEA, PASSING FLATUS, ABDOMEN NON TENDER AND NON DISTENDED, WILL ADVANCE PO INTAKE, RECOMMEND REPEAT CT SCAN ON SUNDAY, CONTINUE IV ANTIBIOTICS TILL THEN Plan discussed with: Patient JENNIFER HUSSEIN MD Mar 15, 2025 09:49
--- NOTE | 2025-03-15 15:24 | DVHPN2 ---
Subjective The patient is seen and examined at bedside. Complain of abdominal pain. Diet advance to clear liquid Reviewed: Care Plan, H&P, Labs, Medications, Previous Orders, Radiology Changes from previous H/P or p: No Changes Eyes: No Pain, No Vision change, No Conjunctivae inflammation, No Eyelid inflammation, No Other, No Redness ENT: No Ear pain, No Ear discharge, No Nose pain, No Nose discharge, No Nose congestion, No Mouth pain, No Mouth swelling, No Throat pain, No Throat swelling, No Other Cardiovascular: No Chest Pain, No Palpitations, No Orthopnea, No Paroxysmal Noc. Dyspnea, No Edema, No Lt Headedness, No Other Gastrointestinal: Nausea, Vomiting, Abdominal Pain, Diarrhea; No Constipation, No Melena, No Hematochezia, No Other Genitourinary: No Dysuria, No Frequency, No Incontinence, No Hematuria, No Retention, No Other Musculoskeletal: No other, No neck pain, No shoulder pain, No arm pain, No back pain, No hand pain, No leg pain, No foot pain Skin: No Rash, No Lesions, No Jaundice, No Bruising, No Other Objective Vitals Vital Signs Date Time Temp Pulse Resp B/P (MAP) Pulse Ox O2 Delivery O2 Flow Rate FiO2 03/15/25 12:43 98.2 63 20 150/85 (106) 97 98.2 03/15/25 08:00 Room Air* 0 21 Intake/Output Intake and Output 03/15/25 07:00 Intake Total 750 ml Output Total 2600 ml Balance -1850 ml Intake Oral 650 ml IV Total 100 ml Output Urine Total 2600 ml General Appearance: Alert, Oriented X3, Cooperative, No acute distress HEENT: Atraumatic, PERRLA, EOMI, Mucous membr. moist/pink Neck: Supple Lungs: Clear to auscultation, Normal air movement Cardiovascular: Regular rate, Normal S1, Normal S2, No murmurs, Gallops, Rubs Abdomen: Normal bowel sounds, Soft, No tenderness Neuro: Cranial nerves 3-12 NL Psych/Mental Status: Mental status NL Medications Current Medications Medications Dose Ordered Sig/Arabella Route Start Time Stop Time Status Last Admin Dose Admin Nitroglycerin 0.4 mg Q5MINP PRN SL 03/13/25 13:15 Piperacillin Sod/ Tazobactam Sod 100 ml @ 25 mls/hr Q8HR IV 03/13/25 14:00 03/15/25 05:45 25 MLS/HR Nicotine 1 patch DAILY TD 03/14/25 10:00 03/15/25 11:19 1 PATCH Lactated Ringer's 1,000 ml @ 100 mls/hr Q10H IV 03/13/25 18:15 03/15/25 05:47 100 MLS/HR Hydralazine HCl 10 mg Q6HP PRN IV 03/13/25 19:45 Tamsulosin HCl 0.4 mg QPM PO 03/14/25 18:00 03/14/25 17:15 0.4 MG Laboratory Results Laboratory Tests 03/14/25 04:35 Urinalysis Test 03/13/25 08:55 Urine Color Light-orange (Yellow) Urine Clarity Turbid (Clear) H Urine pH 7.0 (5.0-9.0) Urine Specific [place] 1.016 (1.001-1.035) Urine Protein Negative (Negative) Urine Ketones 1+ (Negative) H Urine Blood Negative /uL (Negative) Urine Nitrite Negative (Negative) Urine Bilirubin Negative (Negative) Urine Urobilinogen 2 mg/dL (Negative) H Urine Leukocyte Esterase Negative /uL (Negative) Urine RBC 2 /hpf (0 - 3) Urine Microscopic WBC < 1 /HPF (0-3) Urine Squamous Epithelial Cells Few /hpf (<5) Urine Amorphous Crystals Few /hpf (None Seen) Urine Bacteria None seen /hpf (None Seen) Urine Mucus Few (None Seen) Urine Yeast (Budding) Few /hpf (None Seen) Urine Glucose Normal mg/dL (Normal) Microbiology Microbiology Date/Time Source Procedure Growth Status 03/13/25 15:37 Blood Blood Culture - Preliminary NO GROWTH AFTER 24 HOURS OF INCUBATION. Resulted Labs and/or images reviewed: Labs reviewed by me Assessment/Plan Assessment/Plan #Undiscovered uncontrolled essential hypertension: Pain control, target blood pressure 140/ 90 or below if remains elevated, consider starting the patient on amlodipine p.o. when able to tolerate Diet orally. For now as needed IV hydralazine #acute abdominal pain likely due to diverticulitis: No previous colonoscopy, needs interval colonoscopy, outpatient follow up with GI for colonoscopy given high-risk of colon cancer. CEA, [place] 19 9 to follow. Lipase to check. Pain control IV hydration to continue NPO for now. #sigmoid colon abscess, 3.3 cm: IV Zosyn to continue, IV fluid, NG tube, surgical consult. #Colonic diverticulosis: Avoid constipation. #Prostatomegaly: Prostate large 2.9, 4.7, 3.3 with calcifications: Check for PSA, starting tamsulosin hospital look for urinary retention. #Past surgical history of right leg ORIF and bilateral cataract surgery #Active nicotine abuse, cigarette smoking 40+ pack-year history: Elevated minute bedside smoking cessation counseling done, the patient is on nicotine patch in-hospital. #moderate alcohol abuse: Patient reports consuming 2-3 beer per day, no active signs of withdrawal, but patient becomes agitated consider putting the patient on CIWA protocol. PUD prophylaxis: protonix 40mg Daily to continue DVT prophylaxis: SCD/brisk movement. Diet advanced per surgeon to clear liquid diet. No surgery planned for now per surgeon. Advised the patient he needs a colonoscopy within 3-6 months after the abscess treat. Continue current management. Discharge planning. This medical document was created using an electronic medical record system with [employer] direct computerized dictation system. Although this document has been carefully reviewed, there may still be some phonetic and typographical errors. These areas are purely typographical due to imperfections of the software programs, and do not reflect any compromise in the patient's medical care. Plan discussed with: Patient Date of Service: Mar 15, 2025 Billing Provider: KOTA ENRIQUEZ MD Common Visit Codes: [id number] INP/OBS CARE(HIGH) KOTA ENRIQUEZ MD Mar 15, 2025 15:24
[2025-03-16] VITALS (8 sets, daily range): BP systolic 119–152; BP diastolic 73–87; PULSE 66–95; RESP 16–19; TEMP 97.6–97.9; O2SAT 92–99
[2025-03-16 07:28] LABS: Chloride 107 mmol/L (98-107); Potassium 4.3 mmol/L (3.5-5.1); Sodium 139 mmol/L (136-145)
[2025-03-16 07:29] LABS: Anion Gap 8 (5-15); Carbon Dioxide 24 mmol/L (20-31)
[2025-03-16 07:33] LABS: Calcium 8.6 mg/dL (8.7-10.4)
[2025-03-16 07:34] LABS: Glucose 82 mg/dL (74-106); Hematocrit 39.2 % (41.0-53.0); Hemoglobin 13.7 g/dL (13.5-17.5); Mean Corpuscular Hemoglobin 34.1 pg (28.0-32.0); Mean Corpuscular Volume 97.7 fL (80.0-100.0); Nucleated Red Blood Cells % 0.1 %
[2025-03-16 07:44] LABS: BUN/Creatinine Ratio 6.8 (10.0-20.0); Blood Urea Nitrogen < 5 mg/dL (9-23)
[2025-03-16 09:07] LABS: Prostate Specific Antigen 2.3 ng/mL (0.0-4.0)
--- NOTE | 2025-03-16 12:12 | DVHPN2 ---
Subjective The patient is seen and examined at bedside. The patient feel better today. Diet advance to clear liquid Reviewed: Care Plan, H&P, Labs, Medications, Previous Orders, Radiology Changes from previous H/P or p: No Changes Eyes: No Pain, No Vision change, No Conjunctivae inflammation, No Eyelid inflammation, No Other, No Redness ENT: No Ear pain, No Ear discharge, No Nose pain, No Nose discharge, No Nose congestion, No Mouth pain, No Mouth swelling, No Throat pain, No Throat swelling, No Other Cardiovascular: No Chest Pain, No Palpitations, No Orthopnea, No Paroxysmal Noc. Dyspnea, No Edema, No Lt Headedness, No Other Gastrointestinal: Nausea, Vomiting, Abdominal Pain, Diarrhea; No Constipation, No Melena, No Hematochezia, No Other Genitourinary: No Dysuria, No Frequency, No Incontinence, No Hematuria, No Retention, No Other Musculoskeletal: No other, No neck pain, No shoulder pain, No arm pain, No back pain, No hand pain, No leg pain, No foot pain Skin: No Rash, No Lesions, No Jaundice, No Bruising, No Other Objective Vitals Vital Signs Date Time Temp Pulse Resp B/P (MAP) Pulse Ox O2 Delivery O2 Flow Rate FiO2 03/16/25 08:46 97.9 67 17 152/87 (108) 96 97.9 03/15/25 20:00 Room Air* 0 21 Intake/Output Intake and Output 03/16/25 07:00 Intake Total 2155 ml Output Total 2530 ml Balance -375 ml Intake Oral 1055 ml IV Total 1100 ml Output Urine Total 2530 ml # Bowel Movements 1 General Appearance: Alert, Oriented X3, Cooperative, No acute distress HEENT: Atraumatic, PERRLA, EOMI, Mucous membr. moist/pink Neck: Supple Lungs: Clear to auscultation, Normal air movement Cardiovascular: Regular rate, Normal S1, Normal S2, No murmurs, Gallops, Rubs Abdomen: Normal bowel sounds, Soft, No tenderness Neuro: Cranial nerves 3-12 NL Psych/Mental Status: Mental status NL Medications Current Medications Medications Dose Ordered Sig/Arabella Route Start Time Stop Time Status Last Admin Dose Admin Nitroglycerin 0.4 mg Q5MINP PRN SL 03/13/25 13:15 Piperacillin Sod/ Tazobactam Sod 100 ml @ 25 mls/hr Q8HR IV 03/13/25 14:00 03/16/25 05:21 25 MLS/HR Nicotine 1 patch DAILY TD 03/14/25 10:00 03/15/25 11:19 1 PATCH Lactated Ringer's 1,000 ml @ 100 mls/hr Q10H IV 03/13/25 18:15 03/15/25 23:54 100 MLS/HR Hydralazine HCl 10 mg Q6HP PRN IV 03/13/25 19:45 Tamsulosin HCl 0.4 mg QPM PO 03/14/25 18:00 03/15/25 17:09 0.4 MG Hydralazine HCl 50 mg Q8HPRN PRN PO 03/15/25 16:00 Laboratory Results Laboratory Tests 03/16/25 06:01 Chemistry Test 03/16/25 06:01 Calcium Level 8.6 mg/dL (8.7-10.4) L Urinalysis Test 03/13/25 08:55 Urine Color Light-orange (Yellow) Urine Clarity Turbid (Clear) H Urine pH 7.0 (5.0-9.0) Urine Specific [place] 1.016 (1.001-1.035) Urine Protein Negative (Negative) Urine Ketones 1+ (Negative) H Urine Blood Negative /uL (Negative) Urine Nitrite Negative (Negative) Urine Bilirubin Negative (Negative) Urine Urobilinogen 2 mg/dL (Negative) H Urine Leukocyte Esterase Negative /uL (Negative) Urine RBC 2 /hpf (0 - 3) Urine Microscopic WBC < 1 /HPF (0-3) Urine Squamous Epithelial Cells Few /hpf (<5) Urine Amorphous Crystals Few /hpf (None Seen) Urine Bacteria None seen /hpf (None Seen) Urine Mucus Few (None Seen) Urine Yeast (Budding) Few /hpf (None Seen) Urine Glucose Normal mg/dL (Normal) Microbiology Microbiology Date/Time Source Procedure Growth Status 03/13/25 15:37 Blood Blood Culture - Preliminary NO GROWTH AFTER 48 HOURS OF INCUBATION. Resulted Labs and/or images reviewed: Labs reviewed by me, Image(s) reviewed by me Assessment/Plan Assessment/Plan #Undiscovered uncontrolled essential hypertension: Pain control, target blood pressure 140/ 90 or below if remains elevated, consider starting the patient on amlodipine p.o. when able to tolerate Diet orally. For now as needed IV hydralazine #acute abdominal pain likely due to diverticulitis: No previous colonoscopy, needs interval colonoscopy, outpatient follow up with GI for colonoscopy given high-risk of colon cancer. CEA, [place] 19 9 to follow. Lipase to check. Pain control IV hydration to continue NPO for now. #sigmoid colon abscess, 3.3 cm: IV Zosyn to continue, IV fluid, NG tube, surgical consult. #Colonic diverticulosis: Avoid constipation. #Prostatomegaly: Prostate large 2.9, 4.7, 3.3 with calcifications: Check for PSA, starting tamsulosin hospital look for urinary retention. #Past surgical history of right leg ORIF and bilateral cataract surgery #Active nicotine abuse, cigarette smoking 40+ pack-year history: Elevated minute bedside smoking cessation counseling done, the patient is on nicotine patch in-hospital. #moderate alcohol abuse: Patient reports consuming 2-3 beer per day, no active signs of withdrawal, but patient becomes agitated consider putting the patient on CIWA protocol. PUD prophylaxis: protonix 40mg Daily to continue DVT prophylaxis: SCD/brisk movement. Diet advanced per surgeon to clear liquid diet. No surgery planned for now per surgeon. Repeat CT scan on Sunday. Advised the patient he needs a colonoscopy within 3-6 months after the abscess treat. Continue current management. This medical document was created using an electronic medical record system with [employer] direct computerized dictation system. Although this document has been carefully reviewed, there may still be some phonetic and typographical errors. These areas are purely typographical due to imperfections of the software programs, and do not reflect any compromise in the patient's medical care. Plan discussed with: Patient My Orders Orders - KOTA ENRIQUEZ MD Procedure Category Date Status Time Hydralazine Hcl PHA 03/15/25 In Process Tablet (Apresoline 16:00 Date of Service: Mar 16, 2025 Billing Provider: KOTA ENRIQUEZ MD Common Visit Codes: [id number] INP/OBS CARE(HIGH) KOTA ENRIQUEZ MD Mar 16, 2025 12:12
--- NOTE | 2025-03-16 12:17 | DVHPN2 ---
Subjective Date Seen: Mar 16, 2025 Post op day Post op day: 0 Patient reports: No new complaints Nursing reports: No new complaints Objective Vitals Vital Sign Date Time Temp Pulse Resp B/P (MAP) Pulse Ox O2 Delivery O2 Flow Rate FiO2 03/16/25 08:46 97.9 67 17 152/87 (108) 96 97.9 03/15/25 20:00 Room Air* 0 21 Total Intake and Output 03/15/25 03/15/25 03/16/25 15:00 23:00 07:00 Intake Total 100 ml 1315 ml 740 ml Output Total 1850 ml 680 ml Balance 100 ml -535 ml 60 ml Medications Current Medications Medications Dose Ordered Sig/Arabella Route Start Time Stop Time Status Last Admin Dose Admin Nitroglycerin 0.4 mg Q5MINP PRN SL 03/13/25 13:15 Piperacillin Sod/ Tazobactam Sod 100 ml @ 25 mls/hr Q8HR IV 03/13/25 14:00 03/16/25 05:21 25 MLS/HR Nicotine 1 patch DAILY TD 03/14/25 10:00 03/15/25 11:19 1 PATCH Lactated Ringer's 1,000 ml @ 100 mls/hr Q10H IV 03/13/25 18:15 03/15/25 23:54 100 MLS/HR Hydralazine HCl 10 mg Q6HP PRN IV 03/13/25 19:45 Tamsulosin HCl 0.4 mg QPM PO 03/14/25 18:00 03/15/25 17:09 0.4 MG Hydralazine HCl 50 mg Q8HPRN PRN PO 03/15/25 16:00 General: Normal, Well developed Head/Eyes: Normal ENT: Normal Neck: Normal, Supple Lungs: Normal, Normal inspection Cardiovascular: Normal, Regular rate and rhythm Abdominal: Normal, Soft Labs and Microbiology Laboratory Tests 03/16/25 06:01 Test 03/16/25 06:01 Range/Units Serum Glucose 82 74-106 mg/dL Ass/Plan Labs and/or images reviewed: Labs reviewed by me Problem List 03/14/25 feels well, no pain, abdomen nontender, wbc norm al, patient remains afebrile, will dc ngt and start po clear liquids 03/15/25 AFEBRILE, NORMOTENSIVE, TOLERATED CLEAR LIQUIDS WITHOUT NAUSEA, PASSING FLATUS, ABDOMEN NON TENDER AND NON DISTENDED, WILL ADVANCE PO INTAKE, RECOMMEND REPEAT CT SCAN ON SUNDAY, CONTINUE IV ANTIBIOTICS TILL THEN Assessment/Plan no new complaints afebrile tolerating diet abdomen soft , non distended continue IV antibiotics CT scan on Sunday Prognosis: Good Plan discussed with patient, Dr. Perdomo Visit Coding Surgery Date of Service if different f: Mar 16, 2025 Billing Provider: JENNIFER PERDOMO MD Surgery Visit Codes: [id number] INP/OBS CARE(HIGH) JOSE HERRERA [employer] Mar 16, 2025 12:17
[2025-03-17] VITALS (8 sets, daily range): BP systolic 102–142; BP diastolic 63–80; PULSE 66–80; RESP 15–18; TEMP 97.4–98.7; O2SAT 95–98
[2025-03-17 06:18] LABS: Hematocrit 38.6 % (41.0-53.0); Hemoglobin 13.3 g/dL (13.5-17.5); Mean Corpuscular Hemoglobin 33.2 pg (28.0-32.0); Mean Corpuscular Volume 96.6 fL (80.0-100.0); Nucleated Red Blood Cells % 0.0 %
[2025-03-17 06:32] LABS: Anion Gap 9 (5-15); Calcium 8.7 mg/dL (8.7-10.4); Carbon Dioxide 25 mmol/L (20-31); Chloride 104 mmol/L (98-107); Glucose 80 mg/dL (74-106); Potassium 4.0 mmol/L (3.5-5.1); Sodium 138 mmol/L (136-145)
[2025-03-17 06:39] LABS: BUN/Creatinine Ratio 7.5 (10.0-20.0); Blood Urea Nitrogen < 5 mg/dL (9-23)
--- NOTE | 2025-03-17 11:18 | DVHPN2 ---
Progress Note Date Seen: Mar 17, 2025 Medical Necessity Reason Pt with a Central, PICC or Fol: No Objective vital signs Vital Sign Date Time Temp Pulse Resp B/P (MAP) Pulse Ox O2 Delivery O2 Flow Rate FiO2 03/17/25 09:00 97.4 69 15 132/77 (95) 95 97.4 03/17/25 08:00 Room Air* 0 21 Total Intake and Output 03/16/25 03/16/25 03/17/25 15:00 23:00 07:00 Intake Total 650 ml 550 ml Output Total 380 ml Balance 650 ml 170 ml medications Current Medications Medications Dose Ordered Sig/Arabella Route Start Time Stop Time Status Last Admin Dose Admin Nitroglycerin 0.4 mg Q5MINP PRN SL 03/13/25 13:15 Piperacillin Sod/ Tazobactam Sod 100 ml @ 25 mls/hr Q8HR IV 03/13/25 14:00 03/17/25 05:25 25 MLS/HR Nicotine 1 patch DAILY TD 03/14/25 10:00 03/17/25 08:38 1 PATCH Lactated Ringer's 1,000 ml @ 100 mls/hr Q10H IV 03/13/25 18:15 03/17/25 02:15 100 MLS/HR Hydralazine HCl 10 mg Q6HP PRN IV 03/13/25 19:45 Tamsulosin HCl 0.4 mg QPM PO 03/14/25 18:00 03/16/25 18:26 0.4 MG Hydralazine HCl 50 mg Q8HPRN PRN PO 03/15/25 16:00 laboratory and microbiology Laboratory Tests 03/17/25 04:55 Test 03/17/25 04:55 Range/Units Serum Glucose 80 74-106 mg/dL Problem List/Assessment/Plan Problem List/Assessment/Plan 03/14/25 feels well, no pain, abdomen nontender, wbc norm al, patient remains afebrile, will dc ngt and start po clear liquids 03/15/25 AFEBRILE, NORMOTENSIVE, TOLERATED CLEAR LIQUIDS WITHOUT NAUSEA, PASSING FLATUS, ABDOMEN NON TENDER AND NON DISTENDED, WILL ADVANCE PO INTAKE, RECOMMEND REPEAT CT SCAN ON SUNDAY, CONTINUE IV ANTIBIOTICS TILL THEN 03/16/25 feels very well, remains afebrile, abdomen non tender, tolerating po, normal bowel and bladder function, CT ordered for tomorrow, all questions answered Plan discussed with: Patient JENNIFER HUSSEIN MD Mar 17, 2025 11:18
--- NOTE | 2025-03-17 12:19 | DVHPN2 ---
Subjective The patient is seen and examined at bedside. The patient feel better today. Diet advance to soft diet. The patient tolerate well. Reviewed: Care Plan, H&P, Labs, Medications, Previous Orders, Radiology Changes from previous H/P or p: No Changes Eyes: No Pain, No Vision change, No Conjunctivae inflammation, No Eyelid inflammation, No Other, No Redness ENT: No Ear pain, No Ear discharge, No Nose pain, No Nose discharge, No Nose congestion, No Mouth pain, No Mouth swelling, No Throat pain, No Throat swelling, No Other Cardiovascular: No Chest Pain, No Palpitations, No Orthopnea, No Paroxysmal Noc. Dyspnea, No Edema, No Lt Headedness, No Other Gastrointestinal: Nausea, Vomiting, Abdominal Pain, Diarrhea; No Constipation, No Melena, No Hematochezia, No Other Genitourinary: No Dysuria, No Frequency, No Incontinence, No Hematuria, No Retention, No Other Musculoskeletal: No other, No neck pain, No shoulder pain, No arm pain, No back pain, No hand pain, No leg pain, No foot pain Skin: No Rash, No Lesions, No Jaundice, No Bruising, No Other Objective Vitals Vital Signs Date Time Temp Pulse Resp B/P (MAP) Pulse Ox O2 Delivery O2 Flow Rate FiO2 03/17/25 09:00 97.4 69 15 132/77 (95) 95 97.4 03/17/25 08:00 Room Air* 0 21 Intake/Output Intake and Output 03/17/25 07:00 Intake Total 1200 ml Output Total 380 ml Balance 820 ml Intake Oral 1100 ml IV Total 100 ml Output Urine Total 380 ml # Voids 2 General Appearance: Alert, Oriented X3, Cooperative, No acute distress HEENT: Atraumatic, PERRLA, EOMI, Mucous membr. moist/pink Neck: Supple Lungs: Clear to auscultation, Normal air movement Cardiovascular: Regular rate, Normal S1, Normal S2, No murmurs, Gallops, Rubs Abdomen: Normal bowel sounds, Soft, No tenderness Neuro: Cranial nerves 3-12 NL Psych/Mental Status: Mental status NL Medications Current Medications Medications Dose Ordered Sig/Arabella Route Start Time Stop Time Status Last Admin Dose Admin Nitroglycerin 0.4 mg Q5MINP PRN SL 03/13/25 13:15 Piperacillin Sod/ Tazobactam Sod 100 ml @ 25 mls/hr Q8HR IV 03/13/25 14:00 03/17/25 05:25 25 MLS/HR Nicotine 1 patch DAILY TD 03/14/25 10:00 03/17/25 08:38 1 PATCH Lactated Ringer's 1,000 ml @ 100 mls/hr Q10H IV 03/13/25 18:15 03/17/25 02:15 100 MLS/HR Hydralazine HCl 10 mg Q6HP PRN IV 03/13/25 19:45 Tamsulosin HCl 0.4 mg QPM PO 03/14/25 18:00 03/16/25 18:26 0.4 MG Hydralazine HCl 50 mg Q8HPRN PRN PO 03/15/25 16:00 Laboratory Results Laboratory Tests 03/17/25 04:55 Chemistry Test 03/17/25 04:55 Calcium Level 8.7 mg/dL (8.7-10.4) Urinalysis Test 03/13/25 08:55 Urine Color Light-orange (Yellow) Urine Clarity Turbid (Clear) H Urine pH 7.0 (5.0-9.0) Urine Specific [place] 1.016 (1.001-1.035) Urine Protein Negative (Negative) Urine Ketones 1+ (Negative) H Urine Blood Negative /uL (Negative) Urine Nitrite Negative (Negative) Urine Bilirubin Negative (Negative) Urine Urobilinogen 2 mg/dL (Negative) H Urine Leukocyte Esterase Negative /uL (Negative) Urine RBC 2 /hpf (0 - 3) Urine Microscopic WBC < 1 /HPF (0-3) Urine Squamous Epithelial Cells Few /hpf (<5) Urine Amorphous Crystals Few /hpf (None Seen) Urine Bacteria None seen /hpf (None Seen) Urine Mucus Few (None Seen) Urine Yeast (Budding) Few /hpf (None Seen) Urine Glucose Normal mg/dL (Normal) Microbiology Microbiology Date/Time Source Procedure Growth Status 03/13/25 15:37 Blood Blood Culture - Preliminary NO GROWTH AFTER 72 HOURS OF INCUBATION. Resulted Labs and/or images reviewed: Labs reviewed by me Assessment/Plan Assessment/Plan #Undiscovered uncontrolled essential hypertension: Pain control, target blood pressure 140/ 90 or below if remains elevated, consider starting the patient on amlodipine p.o. when able to tolerate Diet orally. For now as needed IV hydralazine #acute abdominal pain likely due to diverticulitis: No previous colonoscopy, needs interval colonoscopy, outpatient follow up with GI for colonoscopy given high-risk of colon cancer. CEA, [place] 19 9 to follow. Lipase to check. Pain control IV hydration to continue NPO for now. #sigmoid colon abscess, 3.3 cm: IV Zosyn to continue, IV fluid, NG tube, surgical consult. #Colonic diverticulosis: Avoid constipation. #Prostatomegaly: Prostate large 2.9, 4.7, 3.3 with calcifications: Check for PSA, starting tamsulosin hospital look for urinary retention. #Past surgical history of right leg ORIF and bilateral cataract surgery #Active nicotine abuse, cigarette smoking 40+ pack-year history: Elevated minute bedside smoking cessation counseling done, the patient is on nicotine patch in-hospital. #moderate alcohol abuse: Patient reports consuming 2-3 beer per day, no active signs of withdrawal, but patient becomes agitated consider putting the patient on CIWA protocol. PUD prophylaxis: protonix 40mg Daily to continue DVT prophylaxis: SCD/brisk movement. Diet advanced per surgeon to clear liquid diet. No surgery planned for now per surgeon. Repeat CT scan on Sunday. Advised the patient he needs a colonoscopy within 3-6 months after the abscess treat. Continue current management. This medical document was created using an electronic medical record system with [employer] direct computerized dictation system. Although this document has been carefully reviewed, there may still be some phonetic and typographical errors. These areas are purely typographical due to imperfections of the software programs, and do not reflect any compromise in the patient's medical care. Plan discussed with: Patient My Orders Orders - KOTA ENRIQUEZ MD Procedure Category Date Status Time Complete Blood Count LAB 03/18/25 Verified 05:00 Complete Blood Count LAB 03/19/25 Verified 05:00 Complete Blood Count LAB 03/20/25 Verified 05:00 Complete Blood Count LAB 03/21/25 Verified 05:00 Basic Metabolic Panel LAB 03/18/25 Verified 05:00 Basic Metabolic Panel LAB 03/19/25 Verified 05:00 Basic Metabolic Panel LAB 03/20/25 Verified 05:00 Basic Metabolic Panel LAB 03/21/25 Verified 05:00 Date of Service: Mar 17, 2025 Billing Provider: KOTA ENRIQUEZ MD Common Visit Codes: [id number] INP/OBS CARE(HIGH) KOTA ENRIQUEZ MD Mar 17, 2025 12:18
[2025-03-18] VITALS (8 sets, daily range): BP systolic 116–144; BP diastolic 71–84; PULSE 60–82; RESP 17–18; TEMP 97.7–98.8; O2SAT 95–98
[2025-03-18 05:35] LABS: Hematocrit 38.3 % (41.0-53.0); Hemoglobin 13.1 g/dL (13.5-17.5); Mean Corpuscular Hemoglobin 33.3 pg (28.0-32.0); Mean Corpuscular Volume 97.2 fL (80.0-100.0); Nucleated Red Blood Cells % 0.1 %
[2025-03-18 05:48] LABS: Calcium 8.9 mg/dL (8.7-10.4); Chloride 105 mmol/L (98-107); Potassium 4.2 mmol/L (3.5-5.1); Sodium 139 mmol/L (136-145)
[2025-03-18 05:49] LABS: Anion Gap 10 (5-15); Carbon Dioxide 24 mmol/L (20-31)
[2025-03-18 05:54] LABS: BUN/Creatinine Ratio 11.2 (10.0-20.0); Blood Urea Nitrogen 10 mg/dL (9-23); Glucose 89 mg/dL (74-106)
[2025-03-18] MEDS: OMNIPAQUE 12mg/ml 500ml ORAL SOLUTION PO ONE (09:03)
[2025-03-18] MEDS: IOHEXOL 300 MG/ML 100ML BOTTLE IJ ONE (11:39)
--- NOTE | 2025-03-18 12:03 | DVHPN2 ---
Subjective The patient is seen and examined at bedside. The patient feel better today. Diet advance to soft diet. The patient tolerate well. Just got back from CT Reviewed: Care Plan, H&P, Labs, Medications, Previous Orders, Radiology Changes from previous H/P or p: No Changes Eyes: No Pain, No Vision change, No Conjunctivae inflammation, No Eyelid inflammation, No Other, No Redness ENT: No Ear pain, No Ear discharge, No Nose pain, No Nose discharge, No Nose congestion, No Mouth pain, No Mouth swelling, No Throat pain, No Throat swelling, No Other Cardiovascular: No Chest Pain, No Palpitations, No Orthopnea, No Paroxysmal Noc. Dyspnea, No Edema, No Lt Headedness, No Other Gastrointestinal: Nausea, Vomiting, Abdominal Pain, Diarrhea; No Constipation, No Melena, No Hematochezia, No Other Genitourinary: No Dysuria, No Frequency, No Incontinence, No Hematuria, No Retention, No Other Musculoskeletal: No other, No neck pain, No shoulder pain, No arm pain, No back pain, No hand pain, No leg pain, No foot pain Skin: No Rash, No Lesions, No Jaundice, No Bruising, No Other Objective Vitals Vital Signs Date Time Temp Pulse Resp B/P (MAP) Pulse Ox O2 Delivery O2 Flow Rate FiO2 03/18/25 08:38 98.5 82 18 121/71 (88) 97 98.5 03/18/25 08:00 Room Air* 0 21 Intake/Output Intake and Output 03/18/25 07:00 Intake Total 1665 ml Output Total 700 ml Balance 965 ml Intake Oral 1665 ml Output Urine Total 700 ml # Voids 4 # Bowel Movements 2 General Appearance: Alert, Oriented X3, Cooperative, No acute distress HEENT: Atraumatic, PERRLA, EOMI, Mucous membr. moist/pink Neck: Supple Lungs: Clear to auscultation, Normal air movement Cardiovascular: Regular rate, Normal S1, Normal S2, No murmurs, Gallops, Rubs Abdomen: Normal bowel sounds, Soft, No tenderness Neuro: Cranial nerves 3-12 NL Psych/Mental Status: Mental status NL Medications Current Medications Medications Dose Ordered Sig/Arabella Route Start Time Stop Time Status Last Admin Dose Admin Nitroglycerin 0.4 mg Q5MINP PRN SL 03/13/25 13:15 Piperacillin Sod/ Tazobactam Sod 100 ml @ 25 mls/hr Q8HR IV 03/13/25 14:00 03/18/25 06:05 25 MLS/HR Nicotine 1 patch DAILY TD 03/14/25 10:00 03/18/25 10:00 1 PATCH Lactated Ringer's 1,000 ml @ 100 mls/hr Q10H IV 03/13/25 18:15 03/17/25 02:15 100 MLS/HR Hydralazine HCl 10 mg Q6HP PRN IV 03/13/25 19:45 Tamsulosin HCl 0.4 mg QPM PO 03/14/25 18:00 03/17/25 18:00 0.4 MG Hydralazine HCl 50 mg Q8HPRN PRN PO 03/15/25 16:00 Laboratory Results Laboratory Tests 03/18/25 04:35 Chemistry Test 03/18/25 04:35 Calcium Level 8.9 mg/dL (8.7-10.4) Urinalysis Test 03/13/25 08:55 Urine Color Light-orange (Yellow) Urine Clarity Turbid (Clear) H Urine pH 7.0 (5.0-9.0) Urine Specific [place] 1.016 (1.001-1.035) Urine Protein Negative (Negative) Urine Ketones 1+ (Negative) H Urine Blood Negative /uL (Negative) Urine Nitrite Negative (Negative) Urine Bilirubin Negative (Negative) Urine Urobilinogen 2 mg/dL (Negative) H Urine Leukocyte Esterase Negative /uL (Negative) Urine RBC 2 /hpf (0 - 3) Urine Microscopic WBC < 1 /HPF (0-3) Urine Squamous Epithelial Cells Few /hpf (<5) Urine Amorphous Crystals Few /hpf (None Seen) Urine Bacteria None seen /hpf (None Seen) Urine Mucus Few (None Seen) Urine Yeast (Budding) Few /hpf (None Seen) Urine Glucose Normal mg/dL (Normal) Microbiology Microbiology Date/Time Source Procedure Growth Status 03/13/25 15:37 Blood Blood Culture - Preliminary NO GROWTH AFTER 72 HOURS OF INCUBATION. Resulted Labs and/or images reviewed: Labs reviewed by me Assessment/Plan Assessment/Plan #Undiscovered uncontrolled essential hypertension: Pain control, target blood pressure 140/ 90 or below if remains elevated, consider starting the patient on amlodipine p.o. when able to tolerate Diet orally. For now as needed IV hydralazine #acute abdominal pain likely due to diverticulitis: No previous colonoscopy, needs interval colonoscopy, outpatient follow up with GI for colonoscopy given high-risk of colon cancer. CEA, [place] 19 9 to follow. Lipase to check. Pain control IV hydration to continue NPO for now. #sigmoid colon abscess, 3.3 cm: IV Zosyn to continue, IV fluid, NG tube, surgical consult. #Colonic diverticulosis: Avoid constipation. #Prostatomegaly: Prostate large 2.9, 4.7, 3.3 with calcifications: Check for PSA, starting tamsulosin hospital look for urinary retention. #Past surgical history of right leg ORIF and bilateral cataract surgery #Active nicotine abuse, cigarette smoking 40+ pack-year history: Elevated minute bedside smoking cessation counseling done, the patient is on nicotine patch in-hospital. #moderate alcohol abuse: Patient reports consuming 2-3 beer per day, no active signs of withdrawal, but patient becomes agitated consider putting the patient on CIWA protocol. PUD prophylaxis: protonix 40mg Daily to continue DVT prophylaxis: SCD/brisk movement. Diet advanced per surgeon to clear liquid diet. No surgery planned for now per surgeon. Repeat CT scan on Sunday. Advised the patient he needs a colonoscopy within 3-6 months after the abscess treat. Continue current management. Will wait for result of abdomen and pelvis CT. Discharge planning. This medical document was created using an electronic medical record system with M*M [employer] direct computerized dictation system. Although this document has been carefully reviewed, there may still be some phonetic and typographical errors. These areas are purely typographical due to imperfections of the software programs, and do not reflect any compromise in the patient's medical care. Plan discussed with: Patient Date of Service: Mar 18, 2025 Billing Provider: KOTA ENRIQUEZ MD Common Visit Codes: [id number] INP/OBS CARE(HIGH) KOTA ENRIQUEZ MD Mar 18, 2025 12:03
--- NOTE | 2025-03-18 13:21 | DVH ---
Exam: CT CT ABD PELVIS W CON-ORAL IV History: R/O PERF,SIGMOID DIVERTICULITIS. COMPARISON: CT CT ABD PELVIS W CON-ORAL IV on DOS: 03/13/25 Technique: Multidetector spiral CT of the abdomen and pelvis was performed from lung bases to pubic symphysis. Intravenous contrast was administered during this examination. Portal venous imaging was obtained. Axial, coronal and sagittal multiplanar reformats were performed by the technologist on a separate workstation. Radiation Dose : 1. Abdomen/Pelvis: CTDIvol 5.07mGy, DLP 3.92 mGy*cm. Findings: Lung Bases: No acute or significant lung base finding. Normal heart size. No pleural or pericardial effusion. Liver: The liver is normal in size. No focal lesions. Normal hepatic vascular enhancement. Gallbladder and Biliary Tree: Gallbladder is decompressed. Spleen: Unremarkable Pancreas: The pancreas is normal in appearance without focal lesions or abnormal enhancement. Adrenal Glands: Unremarkable Kidneys: No hydronephrosis. Bladder: Unremarkable Bowel: The stomach is grossly normal in appearance. Colonic diverticulosis. Unchanged 3.1 cm air and fluid collection abutting the central sigmoid colon in the central pelvis. Normal appendix is visualized in the right lower quadrant without findings of appendicitis. Ascites: Absent Lymphadenopathy: No mesenteric, retroperitoneal or periportal lymphadenopathy. Abdominal Wall and Mesentery: Unremarkable. Vasculature: The visualized abdominal aorta is normal in size and caliber. Abdominal and pelvic vessels demonstrate normal enhancement. Pelvic Organs: Unremarkable Musculoskeletal: No aggressive focal bony lesions, acute fractures or dislocation. IMPRESSION: Unchanged 3.1 cm air and fluid collection abutting the central sigmoid colon in the central pelvis. This likely represents a contained perforation. Radiation optimization: All CT scans at this facility use at least one of these dose optimization techniques: automated exposure control mA and/or kV adjustment per patient size (includes targeted exams where dose is matched to clinical indication) or iterative reconstruction.
--- NOTE | 2025-03-18 14:27 | DVHPN2 ---
Progress Note Date Seen: Mar 18, 2025 Medical Necessity Reason Pt with a Central, PICC or Fol: No Objective vital signs Vital Sign Date Time Temp Pulse Resp B/P (MAP) Pulse Ox O2 Delivery O2 Flow Rate FiO2 03/18/25 12:32 97.7 72 17 144/84 (104) 96 97.7 03/18/25 08:00 Room Air* 0 21 Total Intake and Output 03/17/25 03/17/25 03/18/25 15:00 23:00 07:00 Intake Total 975 ml 690 ml Output Total 700 ml Balance 975 ml -10 ml medications Current Medications Medications Dose Ordered Sig/Arabella Route Start Time Stop Time Status Last Admin Dose Admin Nitroglycerin 0.4 mg Q5MINP PRN SL 03/13/25 13:15 Piperacillin Sod/ Tazobactam Sod 100 ml @ 25 mls/hr Q8HR IV 03/13/25 14:00 03/18/25 14:08 25 MLS/HR Nicotine 1 patch DAILY TD 03/14/25 10:00 03/18/25 10:00 1 PATCH Lactated Ringer's 1,000 ml @ 100 mls/hr Q10H IV 03/13/25 18:15 03/17/25 02:15 100 MLS/HR Hydralazine HCl 10 mg Q6HP PRN IV 03/13/25 19:45 Tamsulosin HCl 0.4 mg QPM PO 03/14/25 18:00 03/17/25 18:00 0.4 MG Hydralazine HCl 50 mg Q8HPRN PRN PO 03/15/25 16:00 laboratory and microbiology Laboratory Tests 03/18/25 04:35 Test 03/18/25 04:35 Range/Units Serum Glucose 89 74-106 mg/dL Problem List/Assessment/Plan Problem List/Assessment/Plan 03/14/25 feels well, no pain, abdomen nontender, wbc norm al, patient remains afebrile, will dc ngt and start po clear liquids 03/15/25 AFEBRILE, NORMOTENSIVE, TOLERATED CLEAR LIQUIDS WITHOUT NAUSEA, PASSING FLATUS, ABDOMEN NON TENDER AND NON DISTENDED, WILL ADVANCE PO INTAKE, RECOMMEND REPEAT CT SCAN ON SUNDAY, CONTINUE IV ANTIBIOTICS TILL THEN 03/16/25 feels very well, remains afebrile, abdomen non tender, tolerating po, normal bowel and bladder function, CT ordered for tomorrow, all questions answered 03/18/25 ct scan shows no worsening of confined microperforation, as patient remains free of symptoms and afebrile with nl WBC it is appropriate to continue conservative management, recommend repeating ct scan in about three weeks (Pt OK to be send home with PO antibiotics and follow up with me after a CT scan in three weeks, patient to return to [facility] if any worsening . Plan discussed with: Other JENNIFER HUSSEIN MD Mar 18, 2025 14:27
[2025-03-19] VITALS (7 sets, daily range): BP systolic 101–128; BP diastolic 68–83; PULSE 64–82; RESP 16–19; TEMP 97.8–98.9; O2SAT 95–98
[2025-03-19 06:46] LABS: Hematocrit 39.8 % (41.0-53.0); Hemoglobin 13.6 g/dL (13.5-17.5); Mean Corpuscular Hemoglobin 33.2 pg (28.0-32.0); Mean Corpuscular Volume 97.3 fL (80.0-100.0); Nucleated Red Blood Cells % 0.2 %
[2025-03-19 06:51] LABS: Anion Gap 10 (5-15); Carbon Dioxide 25 mmol/L (20-31); Chloride 105 mmol/L (98-107); Potassium 4.1 mmol/L (3.5-5.1); Sodium 140 mmol/L (136-145)
[2025-03-19 06:52] LABS: Calcium 9.0 mg/dL (8.7-10.4)
[2025-03-19 06:57] LABS: BUN/Creatinine Ratio 11.1 (10.0-20.0); Glucose 79 mg/dL (74-106)
[2025-03-19 07:08] LABS: Blood Urea Nitrogen 8 mg/dL (9-23)
[2025-03-19] MEDS ORDERED: TAMS-35 PO (12:07)
[2025-03-19] MEDS ORDERED: METR-344 PO (12:08)
[2025-03-19] MEDS ORDERED: LEVO500T91 PO (12:08)
--- NOTE | 2025-03-19 12:10 | DVHDS2 ---
Discharge Summary Date of Admission Mar 13, 2025 at 13:13 Date of Discharge: Mar 19, 2025 Labs/Diagnostic Data: Laboratory Results Test 03/19/25 05:56 03/14/25 04:35 03/13/25 21:02 03/13/25 18:22 White Blood Count 5.6 10^3/uL (4.4-10.8) Red Blood Count 4.10 10^6/uL (4.5-5.90) Hemoglobin 13.6 g/dL (13.5-17.5) Hematocrit 39.8 % (41.0-53.0) Mean Corpuscular Volume 97.3 fL (80.0-100.0) Mean Corpuscular Hemoglobin 33.2 pg (28.0-32.0) Mean Corpuscular Hemoglobin Concent 34.2 g/dL (32.0-36.0) Red Cell Distribution Width 12.9 % (11.8-14.3) Platelet Count 246 10^3/uL (140-450) Mean Platelet Volume 7.8 fL (6.9-10.8) Neutrophils (%) (Auto) 62.7 % (37.0-80.0) Lymphocytes (%) (Auto) 24.1 % (10.0-50.0) Monocytes (%) (Auto) 9.8 % (0.0-12.0) Eosinophils (%) (Auto) 2.6 % (0.0-7.0) Basophils (%) (Auto) 0.8 % (0.0-2.0) Neutrophils # (Auto) 3.5 10 ^3/uL (1.6-8.6) Lymphocytes # (Auto) 1.4 10 ^3/uL (0.4-5.4) Monocytes # (Auto) 0.6 10 ^3/uL (0-1.3) Eosinophils # (Auto) 0.1 10 ^3/uL (0-0.8) Basophils # (Auto) 0 10 ^3/uL (0-0.2) Nucleated Red Blood Cells 0.2 % Sodium Level 140 mmol/L (136-145) Potassium Level 4.1 mmol/L (3.5-5.1) Chloride Level 105 mmol/L (98-107) Carbon Dioxide Level 25 mmol/L (20-31) Anion Gap 10 (5-15) Blood Urea Nitrogen 8 mg/dL (9-23) Creatinine 0.72 mg/dL (0.700-1.30) Glomerular Filtration Rate Calc 102 mL/min (>90) BUN/Creatinine Ratio 11.1 (10.0-20.0) Serum Glucose 79 mg/dL (74-106) Calcium Level 9.0 mg/dL (8.7-10.4) Total Bilirubin 0.5 mg/dL (0.2-1.0) Aspartate Amino Transferase (AST) 20 U/L (13-40) Alanine Aminotransferase (ALT) 13 U/L (7-40) Alkaline Phosphatase 75 U/L (46-116) Total Protein 6.8 g/dL (5.7-8.2) Albumin 3.7 g/dL (3.2-4.8) Free Prostate Specific Antigen 0.29 ng/mL (N/A) Percent Free Prostate Specific Ag 12.6 % (.) Prostate Specific Antigen Total 2.3 ng/mL (0.0-4.0) HIV (1&2) Antibody Negative (Negative) Prothrombin Time 11.0 sec (9.3-11.8) Prothrombin Time INR 1.04 (0.9-1.15) Test 03/13/25 15:37 03/13/25 09:50 03/13/25 08:55 03/13/25 08:50 Lactic Acid Level 1.2 mmol/L (0.4-2.0) Direct Bilirubin 0.2 mg/dL (<0.3) Stool Occult Blood Negative (Negative) Stool Occult Blood Sample #3 (Negative) Stool for White Cells None seen Urine Color Light-orange (Yellow) Urine Clarity Turbid (Clear) Urine pH 7.0 (5.0-9.0) Urine Specific [place] 1.016 (1.001-1.035) Urine Protein Negative (Negative) Urine Ketones 1+ (Negative) Urine Blood Negative /uL (Negative) Urine Nitrite Negative (Negative) Urine Bilirubin Negative (Negative) Urine Urobilinogen 2 mg/dL (Negative) Urine Leukocyte Esterase Negative /uL (Negative) Urine RBC 2 /hpf (0 - 3) Urine Microscopic WBC < 1 /HPF (0-3) Urine Squamous Epithelial Cells Few /hpf (<5) Urine Amorphous Crystals Few /hpf (None Seen) Urine Bacteria None seen /hpf (None Seen) Urine Mucus Few (None Seen) Urine Yeast (Budding) Few /hpf (None Seen) Urine Glucose Normal mg/dL (Normal) Lipase 38 U/L (12-53) Carcinoembryonic Antigen 3.93 ng/mL (<=5.0) Other Laboratory Tests 03/19/25 05:56 Final Diagnosis/Problems List sigmoid diverticulitis with microperforation Discharge Disposition: Home Discharge Instruct/Medications Diet: Regular Activity: No Restrictions, As Tolerated Follow Up/Referral: pcp 1-2 weeks Medications: see med list Scheduled Levofloxacin Hemihydrate (Levaquin 500 Mg), 1 TAB PO DAILY Metronidazole (Flagyl), 1 TAB PO TID Tamsulosin Hcl (Flomax), 0.4 MG PO QPM Scheduled PRN Hydrocodone-Acetaminophen (Hydrocodone Bitartrate/AC 5-325 mg), 1 TAB PO Q8HPRN PRN Discharge Statement: "Patient was advised to return to the ER or call 911 if any headaches, dizziness, shortness of breath, chest pain, abdominal pain, bleeding, fevers, or worsening of medical condition. Patient was counseled about treatment plan, medications, possible side effects, patientverbalized understanding. All questions were answered to the best of my ability. This discharge took greater then 30 minutes in planning, reviewing documentation, counseling the patient, and discussing with other team members." ASSESSMENT ASSESSMENT Assessment sigmoid diverticulitis with microperforation KOTA ENRIQUEZ MD Mar 19, 2025 12:09
--- NOTE | 2025-03-19 12:55 | DVHPN2 ---
Subjective The patient is seen and examined at bedside. The patient feel better today. Diet advance to soft diet. The patient tolerate well. Just got back from CT Reviewed: Care Plan, H&P, Labs, Medications, Previous Orders, Radiology Changes from previous H/P or p: No Changes Eyes: No Pain, No Vision change, No Conjunctivae inflammation, No Eyelid inflammation, No Other, No Redness ENT: No Ear pain, No Ear discharge, No Nose pain, No Nose discharge, No Nose congestion, No Mouth pain, No Mouth swelling, No Throat pain, No Throat swelling, No Other Cardiovascular: No Chest Pain, No Palpitations, No Orthopnea, No Paroxysmal Noc. Dyspnea, No Edema, No Lt Headedness, No Other Gastrointestinal: Nausea, Vomiting, Abdominal Pain, Diarrhea; No Constipation, No Melena, No Hematochezia, No Other Genitourinary: No Dysuria, No Frequency, No Incontinence, No Hematuria, No Retention, No Other Musculoskeletal: No other, No neck pain, No shoulder pain, No arm pain, No back pain, No hand pain, No leg pain, No foot pain Skin: No Rash, No Lesions, No Jaundice, No Bruising, No Other Objective Vitals Vital Signs Date Time Temp Pulse Resp B/P (MAP) Pulse Ox O2 Delivery O2 Flow Rate FiO2 03/19/25 12:30 98.3 76 18 128/83 (98) 97 98.3 03/19/25 08:00 Room Air* 0 21 Intake/Output Intake and Output 03/19/25 07:00 Intake Total 2050 ml Output Total 1375 ml Balance 675 ml Intake Oral 1550 ml IV Total 500 ml Output Urine Total 1375 ml # Voids 3 # Bowel Movements 1 General Appearance: Alert, Oriented X3, Cooperative, No acute distress HEENT: Atraumatic, PERRLA, EOMI, Mucous membr. moist/pink Neck: Supple Lungs: Clear to auscultation, Normal air movement Cardiovascular: Regular rate, Normal S1, Normal S2, No murmurs, Gallops, Rubs Abdomen: Normal bowel sounds, Soft, No tenderness Neuro: Cranial nerves 3-12 NL Psych/Mental Status: Mental status NL Medications Current Medications Medications Dose Ordered Sig/Arabella Route Start Time Stop Time Status Last Admin Dose Admin Nitroglycerin 0.4 mg Q5MINP PRN SL 03/13/25 13:15 Piperacillin Sod/ Tazobactam Sod 100 ml @ 25 mls/hr Q8HR IV 03/13/25 14:00 03/19/25 06:00 25 MLS/HR Nicotine 1 patch DAILY TD 03/14/25 10:00 03/19/25 10:43 1 PATCH Lactated Ringer's 1,000 ml @ 100 mls/hr Q10H IV 03/13/25 18:15 03/19/25 08:43 100 MLS/HR Hydralazine HCl 10 mg Q6HP PRN IV 03/13/25 19:45 Tamsulosin HCl 0.4 mg QPM PO 03/14/25 18:00 03/18/25 18:22 0.4 MG Hydralazine HCl 50 mg Q8HPRN PRN PO 03/15/25 16:00 Levofloxacin 500 mg DAILY PO 03/19/25 12:45 UNV Metronidazole 500 mg Q8HR PO 03/19/25 14:00 UNV Laboratory Results Laboratory Tests 03/19/25 05:56 Chemistry Test 03/19/25 05:56 Calcium Level 9.0 mg/dL (8.7-10.4) Urinalysis Test 03/13/25 08:55 Urine Color Light-orange (Yellow) Urine Clarity Turbid (Clear) H Urine pH 7.0 (5.0-9.0) Urine Specific [place] 1.016 (1.001-1.035) Urine Protein Negative (Negative) Urine Ketones 1+ (Negative) H Urine Blood Negative /uL (Negative) Urine Nitrite Negative (Negative) Urine Bilirubin Negative (Negative) Urine Urobilinogen 2 mg/dL (Negative) H Urine Leukocyte Esterase Negative /uL (Negative) Urine RBC 2 /hpf (0 - 3) Urine Microscopic WBC < 1 /HPF (0-3) Urine Squamous Epithelial Cells Few /hpf (<5) Urine Amorphous Crystals Few /hpf (None Seen) Urine Bacteria None seen /hpf (None Seen) Urine Mucus Few (None Seen) Urine Yeast (Budding) Few /hpf (None Seen) Urine Glucose Normal mg/dL (Normal) Microbiology Microbiology Date/Time Source Procedure Growth Status 03/13/25 15:37 Blood Blood Culture - Final NO GROWTH AFTER 5 DAYS OF INCUBATION. Complete Assessment/Plan Assessment/Plan #Undiscovered uncontrolled essential hypertension: Pain control, target blood pressure 140/ 90 or below if remains elevated, consider starting the patient on amlodipine p.o. when able to tolerate Diet orally. For now as needed IV hydralazine #acute abdominal pain likely due to diverticulitis: No previous colonoscopy, needs interval colonoscopy, outpatient follow up with GI for colonoscopy given high-risk of colon cancer. CEA, [place] 19 9 to follow. Lipase to check. Pain control IV hydration to continue NPO for now. #sigmoid colon abscess, 3.3 cm: IV Zosyn to continue, IV fluid, NG tube, surgical consult. #Colonic diverticulosis: Avoid constipation. #Prostatomegaly: Prostate large 2.9, 4.7, 3.3 with calcifications: Check for PSA, starting tamsulosin hospital look for urinary retention. #Past surgical history of right leg ORIF and bilateral cataract surgery #Active nicotine abuse, cigarette smoking 40+ pack-year history: Elevated minute bedside smoking cessation counseling done, the patient is on nicotine patch in-hospital. #moderate alcohol abuse: Patient reports consuming 2-3 beer per day, no active signs of withdrawal, but patient becomes agitated consider putting the patient on CIWA protocol. PUD prophylaxis: protonix 40mg Daily to continue DVT prophylaxis: SCD/brisk movement. Diet advanced per surgeon to clear liquid diet. No surgery planned for now per surgeon. Repeat CT scan on Sunday. Advised the patient he needs a colonoscopy within 3-6 months after the abscess treat. Continue current management. CT abdomen and pelvis showed:Unchanged 3.1 cm air and fluid collection abutting the central sigmoid colon in the central pelvis. This likely represents a contained perforation. Per surgeon, patient can be d/c if tolerate PO antibiotic in 24hours. Will change antibiotic to PO Levaquin 500mg PO daily and Flagyl 500mg PO tid. D/C in am if OK with surgeon. This medical document was created using an electronic medical record system with M[employer] direct computerized dictation system. Although this document has been carefully reviewed, there may still be some phonetic and typographical errors. These areas are purely typographical due to imperfections of the software programs, and do not reflect any compromise in the patient's medical care. Plan discussed with: Patient My Orders Orders - KOTA ENRIQUEZ MD Procedure Category Date Status Time Levofloxacin Tablet PHA 03/19/25 Logged (Levaquin Tablet) 12:45 Metronidazole Tablet PHA 03/19/25 Logged (Flagyl Tablet) 14:00 Discharge DISCHARGE 03/19/25 Transmitted 12:38 Date of Service: Mar 19, 2025 Billing Provider: KOTA ENRIQUEZ MD Common Visit Codes: [id number] INP/OBS CARE(HIGH) KOTA ENRIQUEZ MD Mar 19, 2025 12:55
[2025-03-19] MEDS: levoFLOXacin 500 MG TAB PO SCH (14:06)
[2025-03-19] MEDS: metroNIDAZOLE 500 MG TAB PO SCH (14:06)
--- NOTE | 2025-03-19 14:18 | DVHPN2 ---
Progress Note Date Seen: Mar 19, 2025 Medical Necessity Reason Pt with a Central, PICC or Fol: No Objective vital signs Vital Sign Date Time Temp Pulse Resp B/P (MAP) Pulse Ox O2 Delivery O2 Flow Rate FiO2 03/19/25 12:30 98.3 76 18 128/83 (98) 97 98.3 03/19/25 08:00 Room Air* 0 21 Total Intake and Output 03/18/25 03/18/25 03/19/25 15:00 23:00 07:00 Intake Total 100 ml 1040 ml 910 ml Output Total 600 ml 775 ml Balance -500 ml 1040 ml 135 ml medications Current Medications Medications Dose Ordered Sig/Arabella Route Start Time Stop Time Status Last Admin Dose Admin Nitroglycerin 0.4 mg Q5MINP PRN SL 03/13/25 13:15 Nicotine 1 patch DAILY TD 03/14/25 10:00 03/19/25 10:43 1 PATCH Lactated Ringer's 1,000 ml @ 100 mls/hr Q10H IV 03/13/25 18:15 03/19/25 08:43 100 MLS/HR Hydralazine HCl 10 mg Q6HP PRN IV 03/13/25 19:45 Tamsulosin HCl 0.4 mg QPM PO 03/14/25 18:00 03/18/25 18:22 0.4 MG Hydralazine HCl 50 mg Q8HPRN PRN PO 03/15/25 16:00 Levofloxacin 500 mg DAILY PO 03/19/25 12:45 03/19/25 14:06 500 MG Metronidazole 500 mg Q8HR PO 03/19/25 14:00 03/19/25 14:06 500 MG laboratory and microbiology Laboratory Tests 03/19/25 05:56 Test 03/19/25 05:56 Range/Units Serum Glucose 79 74-106 mg/dL Problem List/Assessment/Plan Problem List/Assessment/Plan 03/14/25 feels well, no pain, abdomen nontender, wbc norm al, patient remains afebrile, will dc ngt and start po clear liquids 03/15/25 AFEBRILE, NORMOTENSIVE, TOLERATED CLEAR LIQUIDS WITHOUT NAUSEA, PASSING FLATUS, ABDOMEN NON TENDER AND NON DISTENDED, WILL ADVANCE PO INTAKE, RECOMMEND REPEAT CT SCAN ON SUNDAY, CONTINUE IV ANTIBIOTICS TILL THEN 03/16/25 feels very well, remains afebrile, abdomen non tender, tolerating po, normal bowel and bladder function, CT ordered for tomorrow, all questions answered 03/18/25 ct scan shows no worsening of confined microperforation, as patient remains free of symptoms and afebrile with nl WBC it is appropriate to continue conservative management, recommend repeating ct scan in about three weeks (Pt OK to be send home with PO antibiotics and follow up with me after a CT scan in three weeks, patient to return to [facility] if any worsening . 03/19/25 doing well, abdomen non tender, patient remains afebrile, tolerating po intake. his antibiotic coverage is being zena ged to po and if he has no clinical change he can be discharged with po antibiotic and return to see me in two to three weeks as outpatient. Plan discussed with: Patient, Other Dietary Evaluation Review Comments: Encourage PO intakes Encourage nicotine cessation Avoid alcohol use Expected Outcomes/Goals: free from nicotin use, recovered GI function JENNIFER HUSSEIN MD Mar 19, 2025 14:18
[2025-03-20] VITALS (7 sets, daily range): BP systolic 94–146; BP diastolic 61–97; PULSE 68–100; RESP 17–18; TEMP 36.4; O2SAT 94–97
[2025-03-20 07:26] LABS: Hematocrit 39.8 % (41.0-53.0); Hemoglobin 13.3 g/dL (13.5-17.5); Mean Corpuscular Hemoglobin 32.5 pg (28.0-32.0); Mean Corpuscular Volume 97.2 fL (80.0-100.0); Nucleated Red Blood Cells % 0.1 %
[2025-03-20 07:35] LABS: Chloride 104 mmol/L (98-107); Potassium 4.2 mmol/L (3.5-5.1); Sodium 138 mmol/L (136-145)
[2025-03-20 07:36] LABS: Anion Gap 9 (5-15); Carbon Dioxide 25 mmol/L (20-31)
[2025-03-20 07:37] LABS: Calcium 9.1 mg/dL (8.7-10.4)
[2025-03-20 07:41] LABS: Glucose 76 mg/dL (74-106)
[2025-03-20 07:42] LABS: BUN/Creatinine Ratio 13.0 (10.0-20.0); Blood Urea Nitrogen 10 mg/dL (9-23)
--- NOTE | 2025-03-20 09:33 | DVHPN2 ---
Subjective Date Seen: Mar 20, 2025 Post op day Post op day: 0 Patient reports: No new complaints Nursing reports: No new complaints General: Normal HNT: Normal Cardiovascular: Normal Respiratory: Normal Gastrointestinal: Normal Genitourinary: Normal Musculoskeletal: Normal Neurological: Normal Objective Vitals Vital Sign Date Time Temp Pulse Resp B/P (MAP) Pulse Ox O2 Delivery O2 Flow Rate FiO2 03/20/25 09:00 97.6 71 18 113/76 (88) 97 97.6 03/20/25 07:49 Room Air* 0 21 Total Intake and Output 03/19/25 03/19/25 03/20/25 15:00 23:00 07:00 Intake Total 780 ml 700 ml Output Total 680 ml 800 ml Balance 100 ml -100 ml Medications Current Medications Medications Dose Ordered Sig/Arabella Route Start Time Stop Time Status Last Admin Dose Admin Nitroglycerin 0.4 mg Q5MINP PRN SL 03/13/25 13:15 Nicotine 1 patch DAILY TD 03/14/25 10:00 03/19/25 10:43 1 PATCH Lactated Ringer's 1,000 ml @ 100 mls/hr Q10H IV 03/13/25 18:15 03/19/25 15:14 100 MLS/HR Hydralazine HCl 10 mg Q6HP PRN IV 03/13/25 19:45 Tamsulosin HCl 0.4 mg QPM PO 03/14/25 18:00 03/19/25 18:54 0.4 MG Hydralazine HCl 50 mg Q8HPRN PRN PO 03/15/25 16:00 Levofloxacin 500 mg DAILY PO 03/19/25 12:45 03/19/25 14:06 500 MG Metronidazole 500 mg Q8HR PO 03/19/25 14:00 03/20/25 06:01 500 MG General: Normal, Well developed Head/Eyes: Normal ENT: Normal Neck: Normal, Supple Lungs: Normal, Normal inspection Cardiovascular: Normal, Regular rate and rhythm Abdominal: Normal, Soft Labs and Microbiology Laboratory Tests 03/20/25 06:20 Test 03/20/25 06:20 Range/Units Serum Glucose 76 74-106 mg/dL Ass/Plan Labs and/or images reviewed: Labs reviewed by me Problem List 03/14/25 feels well, no pain, abdomen nontender, wbc norm al, patient remains afebrile, will dc ngt and start po clear liquids 03/15/25 AFEBRILE, NORMOTENSIVE, TOLERATED CLEAR LIQUIDS WITHOUT NAUSEA, PASSING FLATUS, ABDOMEN NON TENDER AND NON DISTENDED, WILL ADVANCE PO INTAKE, RECOMMEND REPEAT CT SCAN ON SUNDAY, CONTINUE IV ANTIBIOTICS TILL THEN 03/16/25 feels very well, remains afebrile, abdomen non tender, tolerating po, normal bowel and bladder function, CT ordered for tomorrow, all questions answered 03/18/25 ct scan shows no worsening of confined microperforation, as patient remains free of symptoms and afebrile with nl WBC it is appropriate to continue conservative management, recommend repeating ct scan in about three weeks (Pt OK to be send home with PO antibiotics and follow up with me after a CT scan in three weeks, patient to return to [facility] if any worsening . 03/19/25 doing well, abdomen non tender, patient remains afebrile, tolerating po intake. his antibiotic coverage is being zena ged to po and if he has no clinical change he can be discharged with po antibiotic and return to see me in two to three weeks as outpatient. Assessment/Plan no new complaints afebrile tolerating diet abdomen soft , non distended continue IV antibiotics CT scan on Sunday03/20/25 abdomen soft, non distended, tolerating diet denies nausea , vomiting, or abdominal pain labs ok ok to discharge per surgery point of view patent to follow up in surgery clinic in 7-10 days send home with antibiotics Prognosis: Good Plan discussed with patient, Dr. Perdomo Visit Coding Surgery Date of Service if different f: Mar 20, 2025 Billing Provider: JENNIFER PERDOMO MD Surgery Visit Codes: 90499 - INP CONSULT <80 MIN JOSE HERRERA NP Mar 20, 2025 09:33
--- NOTE | 2025-03-20 11:40 | DVHDS2 ---
Discharge Summary Date of Admission Mar 13, 2025 at 13:13 Date of Discharge: Mar 20, 2025 Admitting Diagnosis #Undiscovered uncontrolled essential hypertension: #acute abdominal pain likely due to diverticulitis: #sigmoid colon abscess, 3.3 cm #Colonic diverticulosis #Prostatomegaly #Past surgical history of right leg ORIF and bilateral cataract surgery #Active nicotine abuse #moderate alcohol abuse Labs/Diagnostic Data: Laboratory Results Test 03/20/25 06:20 03/14/25 04:35 03/13/25 21:02 03/13/25 18:22 White Blood Count 5.6 10^3/uL (4.4-10.8) Red Blood Count 4.09 10^6/uL (4.5-5.90) Hemoglobin 13.3 g/dL (13.5-17.5) Hematocrit 39.8 % (41.0-53.0) Mean Corpuscular Volume 97.2 fL (80.0-100.0) Mean Corpuscular Hemoglobin 32.5 pg (28.0-32.0) Mean Corpuscular Hemoglobin Concent 33.4 g/dL (32.0-36.0) Red Cell Distribution Width 12.9 % (11.8-14.3) Platelet Count 244 10^3/uL (140-450) Mean Platelet Volume 7.9 fL (6.9-10.8) Neutrophils (%) (Auto) 64.1 % (37.0-80.0) Lymphocytes (%) (Auto) 23.7 % (10.0-50.0) Monocytes (%) (Auto) 8.9 % (0.0-12.0) Eosinophils (%) (Auto) 2.4 % (0.0-7.0) Basophils (%) (Auto) 0.9 % (0.0-2.0) Neutrophils # (Auto) 3.6 10 ^3/uL (1.6-8.6) Lymphocytes # (Auto) 1.3 10 ^3/uL (0.4-5.4) Monocytes # (Auto) 0.5 10 ^3/uL (0-1.3) Eosinophils # (Auto) 0.1 10 ^3/uL (0-0.8) Basophils # (Auto) 0 10 ^3/uL (0-0.2) Nucleated Red Blood Cells 0.1 % Sodium Level 138 mmol/L (136-145) Potassium Level 4.2 mmol/L (3.5-5.1) Chloride Level 104 mmol/L (98-107) Carbon Dioxide Level 25 mmol/L (20-31) Anion Gap 9 (5-15) Blood Urea Nitrogen 10 mg/dL (9-23) Creatinine 0.77 mg/dL (0.700-1.30) Glomerular Filtration Rate Calc 100 mL/min (>90) BUN/Creatinine Ratio 13.0 (10.0-20.0) Serum Glucose 76 mg/dL (74-106) Calcium Level 9.1 mg/dL (8.7-10.4) Total Bilirubin 0.5 mg/dL (0.2-1.0) Aspartate Amino Transferase (AST) 20 U/L (13-40) Alanine Aminotransferase (ALT) 13 U/L (7-40) Alkaline Phosphatase 75 U/L (46-116) Total Protein 6.8 g/dL (5.7-8.2) Albumin 3.7 g/dL (3.2-4.8) Free Prostate Specific Antigen 0.29 ng/mL (N/A) Percent Free Prostate Specific Ag 12.6 % (.) Prostate Specific Antigen Total 2.3 ng/mL (0.0-4.0) HIV (1&2) Antibody Negative (Negative) Prothrombin Time 11.0 sec (9.3-11.8) Prothrombin Time INR 1.04 (0.9-1.15) Test 03/13/25 15:37 03/13/25 09:50 03/13/25 08:55 03/13/25 08:50 Lactic Acid Level 1.2 mmol/L (0.4-2.0) Direct Bilirubin 0.2 mg/dL (<0.3) Stool Occult Blood Negative (Negative) Stool Occult Blood Sample #3 (Negative) Stool for White Cells None seen Urine Color Light-orange (Yellow) Urine Clarity Turbid (Clear) Urine pH 7.0 (5.0-9.0) Urine Specific [place] 1.016 (1.001-1.035) Urine Protein Negative (Negative) Urine Ketones 1+ (Negative) Urine Blood Negative /uL (Negative) Urine Nitrite Negative (Negative) Urine Bilirubin Negative (Negative) Urine Urobilinogen 2 mg/dL (Negative) Urine Leukocyte Esterase Negative /uL (Negative) Urine RBC 2 /hpf (0 - 3) Urine Microscopic WBC < 1 /HPF (0-3) Urine Squamous Epithelial Cells Few /hpf (<5) Urine Amorphous Crystals Few /hpf (None Seen) Urine Bacteria None seen /hpf (None Seen) Urine Mucus Few (None Seen) Urine Yeast (Budding) Few /hpf (None Seen) Urine Glucose Normal mg/dL (Normal) Lipase 38 U/L (12-53) Carcinoembryonic Antigen 3.93 ng/mL (<=5.0) Other Laboratory Tests 03/20/25 06:20 Brief Hx & Hospital Course: This is a 64 years old male came to emergency department for two months' history of constant suprapubic abdominal pain on and off. Today the pain up to 10/10 and worsening with recent history of watery nonbloody diarrhea. The patient also had nausea, chills and subjective fever at home. The patient also complained of recent constipation. The patient also complained of dysuria. The patient was admitted. CT abdomen and pelvis without contrast showed:Diffuse wall thickening of the sigmoid colon with apparent 3.3 cm extraluminal fluid collection adjacent to the sigmoid colon which could represent abscess from possible micro-perforation secondary to infection/inflammation. No intraperitoneal free air is visualized. Recommend contrast-enhanced study for further evaluation. Recommend colonoscopy as outpatient to exclude underlying mass. Diffuse bladder wall thickening Inferior Correlate for cystitis. The patient was put on IV antibiotic with Zosyn. Blood culture x2 is negative. Surgery was consulted. Recommend conservative treatment with IV antibiotic. Diet subsequently was advanced from NPO to soft diet. The patient tolerated diet well. No fever or chill. No abdominal pain. Patient is able to have bowel movement and passed flatus. Surgeon recommend outpatient follow up in two weeks. The antibiotic was switched to oral Flagyl and Levaquin since yesterday. Patient tolerated the antibiotic. I am going to discharge him home today. Advised him to follow up with primary care physician 1-2 weeks. Follow up with surgeon, Dr. Perdomo per schedule. Activity as tolerated. Diet per home diet. Recommend the patient to have a GI specialist consultation as outpatient for colonoscopy after six months treatment for this infection. Patient need elective colonoscopy. The patient also was counseled to stop smoking and drinking. Physical exam: HEENT: Normocephalic atraumatic pupils equal react to light and accommodation. Extraocular muscles intact, conjunctiva pink, oropharynx moist, no thrush, no exudate. Lymphatic: No lymphadenopathy Cardiovascular exam: S1, S2 was heard. No murmurs, rubs, gallops Lung: Clear on auscultation bilaterally, no wheeze, rale, rhonchi. GI: Abdominal soft, nondistended, nontenderness, positive bowel sounds. Extremity: No crepitus, cyanosis, edema. Pedal pulses present bilateral. Full range of motion. Skin: Normal turgor, no rash. Psych: Alert, oriented x3. Neurology: No focal deficits, cranial nerve II to XII grossly intact. This medical document was created using an electronic medical record system with [employer] direct computerized dictation system. Although this document has been carefully reviewed, there may still be some phonetic and typographical errors. These areas are purely typographical due to imperfections of the software programs, and do not reflect any compromise in the patient's medical care. Condition at Discharge: Stable Final Diagnosis/Problems List #Acute abdominal pain likely due to diverticulitis #sigmoid colon abscess, 3.3 cm, conservative treatment #Colonic diverticulosis # Acute cystitis #Prostatomegaly #Past surgical history of right leg ORIF and bilateral cataract surgery #Active nicotine abuse #moderate alcohol abuse # Elevation of blood pressure without diagnosis of hypertension. Probable related to pain. Discharge Disposition: Home Discharge Instruct/Medications Diet: Regular Activity: No Restrictions, As Tolerated Follow Up/Referral: pcp 1-2 weeks Medications: see med list Scheduled Levofloxacin Hemihydrate (Levaquin 500 Mg), 1 TAB PO DAILY Metronidazole (Flagyl), 1 TAB PO TID Tamsulosin Hcl (Flomax), 0.4 MG PO QPM Scheduled PRN Hydrocodone-Acetaminophen (Hydrocodone Bitartrate/AC 5-325 mg), 1 TAB PO Q8HPRN PRN Discharge Statement: "Patient was advised to return to the ER or call 911 if any headaches, dizziness, shortness of breath, chest pain, abdominal pain, bleeding, fevers, or worsening of medical condition. Patient was counseled about treatment plan, medications, possible side effects, patientverbalized understanding. All questions were answered to the best of my ability. This discharge took greater then 30 minutes in planning, reviewing documentation, counseling the patient, and discussing with other team members." ASSESSMENT ASSESSMENT Assessment sigmoid diverticulitis with microperforation Date of Service: Mar 20, 2025 Billing Provider: KOTA ENRIQUEZ MD Common Visit Codes: 46976-FAL/OBS DISCH DAY >30min KOTA ENRIQUEZ MD Mar 20, 2025 11:40
[2025-03-20] MEDS ORDERED: HYDR-4902 PO (11:48)
== END 2025-03-20 12:45 | disposition home or self-care (01) | DRG 392 ==
LOC: ER 08:12 → OVERFLOW 13:13 → TELE-WESTW 18:05
PROVIDERS: ADMIT Internal Medicine; ATTEND Internal Medicine
DX: K57.20 Diverticulitis of large intestine with perforation and abscess without bleeding (principal); F10.10 Alcohol abuse, uncomplicated; I10 Essential (primary) hypertension; N30.00 Acute cystitis without hematuria; F17.210 Nicotine dependence, cigarettes, uncomplicated; N40.0 Benign prostatic hyperplasia without lower urinary tract symptoms; Y90.9 Presence of alcohol in blood, level not specified
CPT/HCPCS: 36415; 71045; 74176; 74177; 80048; 80053; 80076; 81001; 82270; 82378; 83605; 83690; 84154; 85025; 85048; 85610; 86703; 87040; 87177; 96365; G0378; J2405; J2543; J3490